=== PATIENT | male | born 1930 | race Caucasian/White ===

== ENCOUNTER 2017-10-31 16:54 | Emergency (ER) | payer MEDICARE, BC ==
[2017-10-31 17:17] VITALS: BP 146/80
[2017-10-31] MEDS ORDERED: Take Home: Ciprofloxacin 500 MG Tab, 2 Tab Pack PO ONE ×2 (18:11→18:18)
--- NOTE | 2017-10-31 22:26 | EDM.PDOC ---
ED HPI GENERAL MEDICAL PROBLEM - General Chief Complaint: Genitourinary Problem Time Seen by Provider: 10/31/17 17:05 Source of Information: Reports: Patient History Limitations: Reports: No Limitations - History of Present Illness INITIAL COMMENTS - FREE TEXT/NARRATIVE: Pt. presents to ER with difficulty voiding urine. He has a suprapubic catheter that has been plugged for several hours. He denies any fever or chills. Pt. attempted to fluid catheter, and subsequently used a wire to attempt clearing the obstruction. Onset: Today Location: Reports: Abdomen Bladder Pain Score (Numeric/FACES): 10 - Related Data Allergies Allergy/AdvReac Type Severity Reaction Status Date / Time cefazolin Allergy Rash Verified 10/31/17 17:24 tramadol Allergy Rash Verified 10/31/17 17:20 tape Allergy Rash Uncoded 10/31/17 17:20 Home Meds: Home Meds Hydrocodone/Acetaminophen [[place] 10-325] 1 tab PO Q6H PRN 10/11/13 [History] Brinzolamide [Azopt 1% Ophth Susp] 1 drop EYEBOTH BID 08/14/16 [History] Donepezil [Aricept] 10 mg PO BEDTIME 08/14/16 [History] Pramipexole [Mirapex] 1 mg PO DAILY 08/14/16 [History] Timolol [Betimol] 1 drop EYEBOTH Q12H 08/14/16 [History] Acetaminophen [Acetaminophen Extra Strength] 1,000 mg PO Q4H PRN 10/31/17 [ History] Cranberry Conc/C/Bacill Coag [Cranberry Tablet] 1 each PO BID 10/31/17 [History] Escitalopram [Lexapro] 20 mg PO DAILY 10/31/17 [History] Gabapentin [Neurontin] 300 mg PO BID 10/31/17 [History] Multivitamin [Multiple Vitamins] 1 each PO DAILY 10/31/17 [History] Oxybutynin Chloride [Ditropan Xl] 15 mg PO DAILY 10/31/17 [History] Travoprost [Travatan Z] 1 drop EYEBOTH BEDTIME 10/31/17 [History] hydrOXYzine Pamoate [Hydroxyzine Pamoate] 25 mg PO QID PRN 10/31/17 [History] Past Medical History Genitourinary History: Reports: Urostomy Musculoskeletal History: Reports: Back Pain, Chronic - Past Surgical History Musculoskeletal Surgical History: Reports: Hip Replacement, Knee Replacement, Shoulder Surgery Social & Family History - Tobacco Use Smoking Status *Q: Never Smoker - Alcohol Use Days Per Week of Alcohol Use: 1 Number of Drinks Per Day: 1 Total Drinks Per Week: 1 - Recreational Drug Use Recreational Drug Use: No ED ROS GENERAL - Review of Systems Review Of Systems: See Below Constitutional: Reports: No Symptoms Respiratory: Reports: No Symptoms Cardiovascular: Reports: No Symptoms GI/Abdominal: Reports: No Symptoms : Reports: Other (see HPI) ED EXAM, GENERAL - Physical Exam Exam: See Below Exam Limited By: No Limitations General Appearance: Alert, WD/WN, No Apparent Distress Respiratory/Chest: No Respiratory Distress, Lungs Clear, Normal Breath Sounds, No Accessory Muscle Use, Chest Non-Tender Cardiovascular: Normal Peripheral Pulses, Regular Rate, Rhythm, No Edema, No Gallop, No JVD, No Murmur, No Rub GI/Abdominal: Normal Bowel Sounds, Soft, Non-Tender, No Organomegaly, No Distention, No Abnormal Bruit, No Mass (Male) Exam: No Hernia, Normal Inspection, Suprapubic Fullness, Urethral Discharge (suprapubic catheter is obstructed with while, curdlike material. Culture was obtained.). No: Scrotal Swelling, Scrotum Tenderness (L), Scrotum Tenderness (R) Rectal (Males) Exam: Deferred Back Exam: Normal Inspection, Full Range of Motion, NT Extremities: Normal Inspection, Normal Range of Motion, Non-Tender, Normal Capillary Refill, No Pedal Edema Neurological: Alert, Oriented, CN II-XII Intact, Normal Cognition, Normal Gait, Normal Reflexes, No Motor/Sensory Deficits Course - Vital Signs Last Recorded V/S: Last Vital Signs Temp 37.2 C 10/31/17 17:13 Pulse 56 L 10/31/17 17:13 Resp 16 10/31/17 17:13 BP 146/80 H 10/31/17 17:13 Pulse Ox 96 10/31/17 17:13 - Orders/Labs/Meds Orders: Active Orders 24 hr Category Date Time Status Insert Urinary Catheter [OM.PC] Q24H Care 10/31/17 18:00 Ordered Urinary Catheter Assessment [RC] ASDIRECTED Care 10/31/17 18:00 Active CULTURE URINE [RM] Stat Lab 10/31/17 17:54 Received Labs: Laboratory Tests 10/31/17 Range/Units 17:07 Urine Color Dark yellow H (YELLOW) Urine Appearance Turbid H (CLEAR) Urine pH 8.5 H (5.0-8.0) Ur Specific [place] 1.020 Urine Protein 100 H (NEGATIVE) mg/dL Urine Glucose (UA) Negative (NEGATIVE) mg/dL Urine Ketones Trace H (NEGATIVE) mg/dL Urine Occult Blood Large H (NEGATIVE) Urine Nitrite Positive H (NEGATIVE) Urine Bilirubin Negative (NEGATIVE) Urine Urobilinogen 0.2 (0.2) EU/dL Ur Leukocyte Esterase Large H (NEGATIVE) Urine RBC 20-30 H (NOT SEEN) /HPF Urine WBC >100 H (NOT SEEN) /HPF Urine WBC Clumps Many Ur Transition Epith Cell Not seen (NEGATIVE) /HPF Amorphous Sediment Moderate Urine Bacteria Many H (NEGATIVE) /HPF Urine Mucus Moderate H (NEGATIVE) /LPF Meds: Medications Discontinued Medications Generic Name Dose Route Start Last Admin Trade Name You PRN Reason Stop Dose Admin Ciprofloxacin 1 packet 10/31/17 18:11 10/31/17 18:24 Take Home: Ciprofloxacin 500 Mg, 2 Tab Pack PO 10/31/17 18:12 1 packet ONETIME ONE Administration Ciprofloxacin 1 packet 10/31/17 18:18 10/31/17 18:24 Take Home: Ciprofloxacin 500 Mg, 2 Tab Pack PO 10/31/17 18:19 1 packet ONETIME ONE Administration Departure - Departure Time of Disposition: 18:30 Disposition: Home, Self-Care 01 Condition: Good Clinical Impression: UTI (urinary tract infection) - Discharge Information Instructions: Urinary Tract Infection, Adult, Ciprofloxacin tablets Referrals: Bryant Rodriguez MD [Primary Care Provider] - Forms: ED Department Discharge Additional Instructions: Stop aricept while you are taking the cipro Cipro 500mg twice daily for 7 days Follow-up in clinic in 10-14 days, sooner if not gradually improving. If the catheter becomes clogged again, do not put anything into the catheter, as it is not sterile and can cause a worsening infection or trauma to the bladder. - My Orders Last 24 Hours: My Active Orders 10/31/17 17:54 CULTURE URINE [RM] Stat 10/31/17 18:00 Insert Urinary Catheter [OM.PC] Q24H Urinary Catheter Assessment [RC] ASDIRECTED - Assessment/Plan Last 24 Hours: My Active Orders 10/31/17 17:54 CULTURE URINE [RM] Stat 10/31/17 18:00 Insert Urinary Catheter [OM.PC] Q24H Urinary Catheter Assessment [RC] ASDIRECTED
== END 2017-10-31 18:30 | disposition home or self-care (01) ==
LOC: VM.ED 16:54
DX: N39.0 Urinary tract infection, site not specified (principal); Z88.8 Allergy status to other drugs, medicaments and biological substances; Z91.09 Other allergy status, other than to drugs and biological substances; Z88.5 Allergy status to narcotic agent
CPT/HCPCS: 81001; 87086; 87088; 87186; 99283; A9270-GY

== ENCOUNTER 2018-12-08 10:53 | Emergency (ER) | payer OTHER, MEDICARE, BC ==
[2018-12-08 11:06] VITALS: BP 111/66
--- NOTE | 2018-12-08 11:28 | EDM.PDOC ---
ED HPI GENERAL MEDICAL PROBLEM - General Chief Complaint: Genitourinary Problem Stated Complaint: BLADDER PAIN Time Seen by Provider: 12/08/18 10:55 Source of Information: Reports: Patient, RN History Limitations: Reports: No Limitations - History of Present Illness INITIAL COMMENTS - FREE TEXT/NARRATIVE: Patient presents to the ED at [facility] for the evaluation of what he believes are "bladder spasm." Patient has had a suprapubic catheter for the past 4 years. Has occasional UTI. He has noticed some redness in his urine lately. He follows with a provider at the [facility] in [place]. His last UTI was a couple months ago. Has not noticed any odor or urinary discharge. He states his pain is around the perineal area. This is a chronic issue. Otherwise, no other concerns. Onset: Unknown/Unsure - Related Data Allergies Allergy/AdvReac Type Severity Reaction Status Date / Time cefazolin Allergy Rash Verified 12/08/18 11:08 tramadol Allergy Rash Verified 12/08/18 11:08 tape Allergy Rash Uncoded 10/31/17 17:20 Home Meds: Home Meds Hydrocodone/Acetaminophen [[place] 10-325] 1 tab PO Q6H PRN 10/11/13 [History] Brinzolamide [Azopt 1% Ophth Susp] 1 drop EYEBOTH BID 08/14/16 [History] Donepezil [Aricept] 10 mg PO BEDTIME 08/14/16 [History] Pramipexole [Mirapex] 1 mg PO DAILY 08/14/16 [History] Timolol [Betimol] 1 drop EYEBOTH Q12H 08/14/16 [History] Acetaminophen [Acetaminophen Extra Strength] 1,000 mg PO Q4H PRN 10/31/17 [ History] Cranberry Conc/C/Bacill Coag [Cranberry Tablet] 1 each PO BID 10/31/17 [History] Escitalopram [Lexapro] 20 mg PO DAILY 10/31/17 [History] Gabapentin [Neurontin] 300 mg PO BID 10/31/17 [History] Multivitamin [Multiple Vitamins] 1 each PO DAILY 10/31/17 [History] Oxybutynin Chloride [Ditropan Xl] 15 mg PO DAILY 10/31/17 [History] Travoprost [Travatan Z] 1 drop EYEBOTH BEDTIME 10/31/17 [History] hydrOXYzine pamoate [Hydroxyzine Pamoate] 25 mg PO QID PRN 10/31/17 [History] Nitrofurantoin Monohyd/M-Cryst [Macrobid 100 mg Capsule] 100 mg PO BID 7 Days # 14 capsule 12/08/18 [Rx] Opium/Belladonna Alkaloids [Belladonna-Opium 16.2-30 Supp] 1 each RC BID PRN # 10 supp.rect 12/08/18 [Rx] Past Medical History Genitourinary History: Reports: Urostomy Musculoskeletal History: Reports: Back Pain, Chronic - Past Surgical History Musculoskeletal Surgical History: Reports: Hip Replacement, Knee Replacement, Shoulder Surgery Social & Family History - Tobacco Use Smoking Status *Q: Unknown Ever Smoked ED ROS GENERAL - Review of Systems Review Of Systems: See Below Constitutional: Denies: Fever, Chills Respiratory: Denies: Shortness of Breath, Cough Cardiovascular: Denies: Chest Pain, Palpitations : Reports: Hematuria, Pain (Perineal) Skin: Reports: No Symptoms Neurological: Reports: No Symptoms ED EXAM, RENAL/ - Physical Exam Exam: See Below Exam Limited By: No Limitations General Appearance: Alert, No Apparent Distress Respiratory/Chest: No Respiratory Distress, Lungs Clear, Normal Breath Sounds Cardiovascular: Normal Peripheral Pulses, Regular Rate, Rhythm (Male) Exam: Deferred Neurological: Alert, Oriented Skin Exam: Warm, Dry, Intact, Normal Color Course - Vital Signs Last Recorded V/S: Last Vital Signs Temp 36.7 C 12/08/18 10:55 Pulse 61 12/08/18 10:55 Resp 18 12/08/18 10:55 BP 111/66 12/08/18 10:55 Pulse Ox 97 12/08/18 10:55 - Orders/Labs/Meds Orders: Active Orders 24 hr Category Date Time Status CULTURE URINE [RM] Stat Lab 12/08/18 11:28 Received Labs: Laboratory Tests 12/08/18 Range/Units 11:28 Urine Color Yellow (YELLOW) Urine Appearance Cloudy H (CLEAR) Urine pH 5.5 (5.0-8.0) Ur Specific [place] 1.020 Urine Protein 100 H (NEGATIVE) mg/dL Urine Glucose (UA) Negative (NEGATIVE) mg/dL Urine Ketones Negative (NEGATIVE) mg/dL Urine Occult Blood Moderate H (NEGATIVE) Urine Nitrite Positive H (NEGATIVE) Urine Bilirubin Negative (NEGATIVE) Urine Urobilinogen 0.2 (0.2) EU/dL Ur Leukocyte Esterase Small H (NEGATIVE) Urine RBC 10-20 H (NOT SEEN) /HPF Urine WBC 10-20 H (NOT SEEN) /HPF Urine Bacteria Few H (NEGATIVE) /HPF Urine Mucus Rare H (NEGATIVE) /LPF Departure - Departure Time of Disposition: 12:15 Disposition: Home, Self-Care 01 Condition: Good Clinical Impression: Painful bladder spasm UTI (urinary tract infection) Qualifiers: Urinary tract infection type: acute cystitis Hematuria presence: with hematuria Qualified Code(s): N30.01 - Acute cystitis with hematuria - Discharge Information *PRESCRIPTION DRUG MONITORING PROGRAM REVIEWED*: Not Applicable *COPY OF PRESCRIPTION DRUG MONITORING REPORT IN PATIENT KRUPA: Not Applicable Prescriptions: Nitrofurantoin Monohyd/M-Cryst [Macrobid 100 mg Capsule] 100 mg PO BID 7 Days # 14 capsule Opium/Belladonna Alkaloids [Belladonna-Opium 16.2-30 Supp] 1 each RC BID PRN # 10 supp.rect PRN Reason: Spasms Instructions: Urinary Tract Infection, Adult Forms: ED Department Discharge Additional Instructions: 1. Stay well hydrated and rest 2. See your doctor for a follow up 3. Need to see a Urologist 4. Take antibiotic for the full coarse even if you are feeling better - Problem List Review Problem List Initiated/Reviewed/Updated: Yes - My Orders Last 24 Hours: My Active Orders 12/08/18 11:28 CULTURE URINE [RM] Stat - Assessment/Plan Last 24 Hours: My Active Orders 12/08/18 11:28 CULTURE URINE [RM] Stat Assessment:: UTI with hematuria Bladder spasms Plan: Lab discussed with patient. Will treat for UTI with Macrobid. Will do one prescription for bladder spasms. Needs to see PCP for Urology referral.
== END 2018-12-08 12:23 | disposition home or self-care (01) ==
LOC: VM.ED 10:53
DX: N30.01 Acute cystitis with hematuria (principal); N32.89 Other specified disorders of bladder; Z79.899 Other long term (current) drug therapy
CPT/HCPCS: 81001; 87086; 87088; 87186; 99283; 99283-GF

== ENCOUNTER → 2019-02-23 | Outpatient (CLI) | payer OTHER, MEDICARE, BC | LOC: VM.SLEEP 11:27 | PROVIDERS: ATTEND Psychiatry & Neurology Neurology | DX: G47.33 Obstructive sleep apnea (adult) (pediatric) (principal); E66.9 Obesity, unspecified; Z68.36 Body mass index [BMI] 36.0-36.9, adult | CPT/HCPCS: Q3014 ==

== ENCOUNTER 2019-10-04 16:28 | Observation (INO) | payer MEDICARE, BC ==
[2019-10-04] MEDS ORDERED: Sodium Chloride 0.9% 10 ML Syringe FLUSH PRN ×2 (16:40→18:48)
--- NOTE | 2019-10-04 16:47 | EDM.PDOC ---
ED HPI GENERAL MEDICAL PROBLEM - General Stated Complaint: ER Time Seen by Provider: 10/04/19 16:35 Source of Information: Reports: Patient, EMS - History of Present Illness INITIAL COMMENTS - FREE TEXT/NARRATIVE: Giovanni is an 89 y/o male who is brought to the ER by EMS after he had a syncopal episode at home. He has not been feeling well and according to his he had a fever of 104 at home. EMS reported a temp of 101.4 enroute. He denies that he has taken anything for the fever. He is currently being treated for an epididymitis, but he is not regularly taking the prescribed abx because it gives him diarrhea. It is unknown what abx he is on. He did report taking a pain med for his neuropathy shortly before the syncopal event. EMS reported that he had some confused answers on the way to the hospital, but overall he can answer questions appropriately. Onset: Today - Related Data Allergies Allergy/AdvReac Type Severity Reaction Status Date / Time cefazolin Allergy Rash Verified 10/04/19 18:05 gabapentin Allergy Other Verified 10/04/19 18:06 lactose Allergy Other Verified 10/04/19 18:06 peanut Allergy Other Verified 10/04/19 18:06 pregabalin [From Lyrica] Allergy Other Verified 10/04/19 18:06 tramadol Allergy Rash Verified 10/04/19 18:05 vancomycin Allergy Rash Verified 10/04/19 18:06 tape Allergy Rash Uncoded 10/31/17 17:20 Home Meds: Home Meds Brinzolamide [Azopt 1% Ophth Susp] 1 drop EYEBOTH BID 08/14/16 [History] Donepezil [Aricept] 10 mg PO BEDTIME 08/14/16 [History] Pramipexole [Mirapex] 1 mg PO DAILY 08/14/16 [History] Timolol [Betimol] 1 drop EYEBOTH Q12H 08/14/16 [History] Acetaminophen [Acetaminophen Extra Strength] 1,000 mg PO Q4H PRN 10/31/17 [ History] Cranberry Conc/C/Bacill Coag [Cranberry Tablet] 1 each PO BID 10/31/17 [History] Escitalopram [Lexapro] 20 mg PO DAILY 10/31/17 [History] Gabapentin [Neurontin] 300 mg PO BID 10/31/17 [History] Multivitamin [Multiple Vitamins] 1 each PO DAILY 10/31/17 [History] Travoprost [Travatan Z] 1 drop EYEBOTH BEDTIME 10/31/17 [History] Amoxicillin/Clavulanate K [Augmentin 500-125 MG] 1 tab PO TID 10/04/19 [History] Clotrimazole/Betamethasone Dip [Lotrisone Cream] 15 gm TP BID 10/04/19 [History] Diclofenac Sodium [Voltaren 1% Gel] 4 gm TOP QID 10/04/19 [History] Hydrocodone/Acetaminophen [Hydrocodon-Acetaminophen 5-325] 1 each PO Q8H PRN 01/15 [History] Hyoscyamine Sulfate [Anaspaz] 0.125 mg PO BID 10/04/19 [History] Timolol [Betimol] 51 drop EYEBOTH BID 10/04/19 [History] buPROPion HCl [Wellbutrin Xl] 150 mg PO DAILY 10/04/19 [History] Past Medical History Genitourinary History: Reports: Urostomy Musculoskeletal History: Reports: Back Pain, Chronic - Past Surgical History Musculoskeletal Surgical History: Reports: Hip Replacement, Knee Replacement, Shoulder Surgery Review of Systems - Review of Systems Review Of Systems: See Below Constitutional: Reports: Fever, Weakness Eyes: Reports: No Symptoms Ears: Reports: No Symptoms Nose: Reports: No Symptoms Mouth/Throat: Reports: No Symptoms Respiratory: Reports: No Symptoms Cardiovascular: Reports: Syncope GI/Abdominal: Reports: No Symptoms Genitourinary: Reports: No Symptoms Musculoskeletal: Reports: No Symptoms Skin: Reports: No Symptoms Neurological: Reports: Confusion (intermittent), Syncope, Weakness Psychiatric: Reports: No Symptoms ED EXAM, GENERAL - Physical Exam Exam: See Below Exam Limited By: No Limitations General Appearance: Alert, WD/WN, No Apparent Distress, Other (Elderly male, NAD.) Ears: Other (Bilateral hearing aids) Nose: Normal Inspection, Normal Mucosa Throat/Mouth: Normal Inspection, Normal Lips, Normal Teeth, Normal Voice Head: Atraumatic, Normocephalic Neck: Supple Respiratory/Chest: No Respiratory Distress, Lungs Clear, Normal Breath Sounds, Chest Non-Tender Cardiovascular: Regular Rate, Rhythm, No Edema, No Murmur GI/Abdominal: Normal Bowel Sounds, Soft (Male) Exam: Other (Suprapubic cath noted, no sx of drainage or redness). No : Testicular Tenderness (L), Testicular Tenderness (R) Back Exam: Normal Inspection Extremities: Normal Inspection, Normal Range of Motion, Normal Capillary Refill Neurological: Alert, Oriented, CN II-XII Intact, Normal Cognition Psychiatric: Normal Affect, Normal Mood Skin Exam: Warm, Dry, Intact, Normal Color, No Rash Lymphatic: No Adenopathy EKG INTERPRETATION EKG Date: 10/04/19 Time: 17:01 Rate (Beats/Min): 69 Milo: Normal P-Wave: Present QRS: Normal ST-T: Normal Comparison: NA - No Prior EKG EKG Interpretation Comments: Sinus Rhythm Course - Vital Signs Text/Narrative:: The patient was seen by the [employer]. Labs, EKG, and CXR were ordered. Saline lock placed. 1809 He was given an NS bolus of 500ml. Labs, CXR, and EKG reviewed with Dr Rachel Walter. Note increasing opacification on lung bases bilaterally, left > right. Vitals stable. Temp max in ER 101. COVID test pending. Will admit patient to observation and keep him in isolation until COVID results returned. Will start him on a course of Ceftriaxone and Azithromycin to cover him for a pneumonia and also the ongoing epididymitis that he has had ongoing. See orders. Last Recorded V/S: Last Vital Signs Temp 38.3 C H 10/04/19 17:40 Pulse 74 10/04/19 17:40 Resp 18 10/04/19 17:40 BP 121/69 10/04/19 17:40 Pulse Ox 95 10/04/19 17:40 - Orders/Labs/Meds Orders: Active Orders 24 hr Category Date Time Status EKG Documentation Completion [RC] STAT Care 10/04/19 16:49 Active CORONAVIRUS COVID-19 PCR PHL [MREF] Stat Lab 10/04/19 16:50 Received CULTURE BLOOD [BC] Stat Lab 10/04/19 16:57 Received Sodium Chloride 0.9% [Normal Saline] 1,000 ml Med 10/04/19 17:38 Active IV ONETIME Sodium Chloride 0.9% [Saline Flush] Med 10/04/19 16:40 Active 10 ml FLUSH ASDIRECTED PRN Blood Culture x2 Reflex Set [OM.PC] Stat Oth 10/04/19 16:40 Ordered Saline Lock Insert [OM.PC] Stat Oth 10/04/19 16:40 Ordered Medication Orders Sodium Chloride (Normal Saline) 1,000 mls @ 500 mls/hr IV ONETIME ONE Stop: 10/04/19 19:37 Last Admin: 10/04/19 17:47 Dose: 500 mls/hr Sodium Chloride (Saline Flush) 10 ml FLUSH ASDIRECTED PRN PRN Reason: Keep Vein Open Labs: Laboratory Tests 10/04/19 10/04/19 10/04/19 Range/Units 16:57 16:57 16:57 WBC 5.9 (4.0-10.0) x10^3/uL RBC 4.73 (4.5-6.0) x10^6/uL Hgb 13.7 L (14.0-18.0) g/dL Hct 41.4 (40.0-52.0) % MCV 87.5 (78.0-93.0) fL MCH 29.0 (26.0-32.0) pg MCHC 33.1 (32.0-36.0) g/dL RDW Coeff of [place] 14.6 (10.0-15.0) % Plt Count 165 (130-400) x10^3/uL Neut % (Auto) 85.7 H (50.0-80.0) % Lymph % (Auto) 5.4 L (25.0-50.0) % [place] % (Auto) 6.0 (2.0-11.0) % Eos % (Auto) 2.6 (0.0-4.0) % Baso % (Auto) 0.3 (0.2-1.2) % PT 12.1 (10.0-12.8) SEC INR 1.1 L (2.0-3.5) APTT 25.0 (24.0-36.0) SEC Sodium 142 (136-145) mmol/L Potassium 3.9 (3.5-5.1) mmol/L Chloride 106 (98-107) mmol/L Carbon Dioxide 29 (21-32) mmol/L Anion Gap 10.9 (10-20) mmol/L BUN 12 (7-18) mg/dL Creatinine 0.9 (0.70-1.30) mg/dL Est Cr Clr Drug Dosing TNP Estimated GFR (MDRD) > 60 Glucose 102 (74-106) mg/dL Lactic Acid (0.4-2.0) mmol/L Calcium 8.1 L (8.5-10.1) mg/dL Corrected Calcium 8.82 (8.5-10.1) mg/dL Total Bilirubin 0.7 (0.2-1.0) mg/dL AST 23 (15-37) U/L ALT 29 (16-63) U/L Alkaline Phosphatase 104 (46-116) U/L Lactate Dehydrogenase 169 (85-227) U/L Troponin I < 0.017 (<=0.056) ng/mL Total Protein 6.9 (6.4-8.2) g/dL Albumin 3.1 L (3.4-5.0) g/dL Globulin 3.8 Albumin/Globulin Ratio 0.82 Urine Color (YELLOW) Urine Appearance (CLEAR) Urine pH (5.0-8.0) Ur Specific [place] Urine Protein (NEGATIVE) mg/dL Urine Glucose (UA) (NEGATIVE) mg/dL Urine Ketones (NEGATIVE) mg/dL Urine Occult Blood (NEGATIVE) Urine Nitrite (NEGATIVE) Urine Bilirubin (NEGATIVE) Urine Urobilinogen (0.2) EU/dL Ur Leukocyte Esterase (NEGATIVE) Urine RBC (NOT SEEN) /HPF Urine WBC (NOT SEEN) /HPF Ur Squamous Epith Cells (NEGATIVE) /HPF Amorphous Sediment Urine Bacteria (NEGATIVE) /HPF Urine Mucus (NEGATIVE) /LPF Ethyl Alcohol < 3 (0-3) mg/dL 10/04/19 10/04/19 Range/Units 16:57 17:50 WBC (4.0-10.0) x10^3/uL RBC (4.5-6.0) x10^6/uL Hgb (14.0-18.0) g/dL Hct (40.0-52.0) % MCV (78.0-93.0) fL MCH (26.0-32.0) pg MCHC (32.0-36.0) g/dL RDW Coeff of [place] (10.0-15.0) % Plt Count (130-400) x10^3/uL Neut % (Auto) (50.0-80.0) % Lymph % (Auto) (25.0-50.0) % [place] % (Auto) (2.0-11.0) % Eos % (Auto) (0.0-4.0) % Baso % (Auto) (0.2-1.2) % PT (10.0-12.8) SEC INR (2.0-3.5) APTT (24.0-36.0) SEC Sodium (136-145) mmol/L Potassium (3.5-5.1) mmol/L Chloride (98-107) mmol/L Carbon Dioxide (21-32) mmol/L Anion Gap (10-20) mmol/L BUN (7-18) mg/dL Creatinine (0.70-1.30) mg/dL Est Cr Clr Drug Dosing Estimated GFR (MDRD) Glucose (74-106) mg/dL Lactic Acid 1.3 (0.4-2.0) mmol/L Calcium (8.5-10.1) mg/dL Corrected Calcium (8.5-10.1) mg/dL Total Bilirubin (0.2-1.0) mg/dL AST (15-37) U/L ALT (16-63) U/L Alkaline Phosphatase (46-116) U/L Lactate Dehydrogenase (85-227) U/L Troponin I (<=0.056) ng/mL Total Protein (6.4-8.2) g/dL Albumin (3.4-5.0) g/dL Globulin Albumin/Globulin Ratio Urine Color Light yellow (YELLOW) Urine Appearance Slightly cloudy H (CLEAR) Urine pH 7.5 (5.0-8.0) Ur Specific [place] 1.015 Urine Protein Negative (NEGATIVE) mg/dL Urine Glucose (UA) Negative (NEGATIVE) mg/dL Urine Ketones Negative (NEGATIVE) mg/dL Urine Occult Blood Small H (NEGATIVE) Urine Nitrite Positive H (NEGATIVE) Urine Bilirubin Negative (NEGATIVE) Urine Urobilinogen 0.2 (0.2) EU/dL Ur Leukocyte Esterase Small H (NEGATIVE) Urine RBC 0-5 (NOT SEEN) /HPF Urine WBC 5-10 H (NOT SEEN) /HPF Ur Squamous Epith Cells Not seen (NEGATIVE) /HPF Amorphous Sediment Moderate Urine Bacteria Moderate H (NEGATIVE) /HPF Urine Mucus Few H (NEGATIVE) /LPF Ethyl Alcohol (0-3) mg/dL Meds: Medications Generic Name Dose Route Start Last Admin Trade Name Freq PRN Reason Stop Dose Admin Sodium Chloride 1,000 mls @ 500 mls/hr 10/04/19 17:38 10/04/19 17:47 Normal Saline IV 10/04/19 19:37 500 mls/hr ONETIME ONE Administration Sodium Chloride 10 ml 10/04/19 16:40 Saline Flush FLUSH ASDIRECTED PRN Keep Vein Open - Radiology Interpretation Free Text/Narrative:: CXR=increasing opacification overlying the lung bases bilaterally, left greater than right. developing infiltrates are note excluded. (See final report) Departure - Departure Time of Disposition: 18:31 Disposition: Refer to Observation Condition: Good Clinical Impression: Fever, Syncope - Discharge Information *PRESCRIPTION DRUG MONITORING PROGRAM REVIEWED*: Not Applicable Sepsis Event Note - Focused Exam Vital Signs: Vital Signs Temp Pulse Resp BP Pulse Ox 10/04/19 17:40 38.3 C H 74 18 121/69 95 10/04/19 16:30 38.3 C H 76 20 133/76 98 Date Exam was Performed: 10/04/19 Time Exam was Performed: 18:25 - Problem List & Annotations (1) Fever SNOMED Code(s): 288829960 Code(s): R50.9 - FEVER, UNSPECIFIED Status: Acute Current Visit: Yes Annotation/Comment:: -R/O COVID vs Pneumonia Qualifiers: Fever type: unspecified Qualified Code(s): R50.9 - Fever, unspecified (2) Syncope SNOMED Code(s): 646199823 Code(s): R55 - SYNCOPE AND COLLAPSE Status: Acute Current Visit: Yes (3) Epididymitis SNOMED Code(s): 89985392 Code(s): N45.1 - EPIDIDYMITIS Status: Acute Current Visit: Yes Annotation/Comment:: -Ongoing -Has been on Augmentin per PCP but not taking regularly -Suprapubic catheter in place - Problem List Review Problem List Initiated/Reviewed/Updated: Yes - My Orders Last 24 Hours: My Active Orders 10/04/19 16:40 Sodium Chloride 0.9% [Saline Flush] 10 ml FLUSH ASDIRECTED PRN Blood Culture x2 Reflex Set [OM.PC] Stat Saline Lock Insert [OM.PC] Stat 10/04/19 16:49 EKG Documentation Completion [RC] STAT 10/04/19 16:50 CORONAVIRUS COVID-19 PCR PHL [MREF] Stat 10/04/19 16:57 CULTURE BLOOD [BC] Stat 10/04/19 17:38 Sodium Chloride 0.9% [Normal Saline] 1,000 ml IV ONETIME - Assessment/Plan Admission H&P: Please use this note as an admission H&P Last 24 Hours: My Active Orders 10/04/19 16:40 Sodium Chloride 0.9% [Saline Flush] 10 ml FLUSH ASDIRECTED PRN Blood Culture x2 Reflex Set [OM.PC] Stat Saline Lock Insert [OM.PC] Stat 10/04/19 16:49 EKG Documentation Completion [RC] STAT 10/04/19 16:50 CORONAVIRUS COVID-19 PCR PHL [MREF] Stat 10/04/19 16:57 CULTURE BLOOD [BC] Stat 10/04/19 17:38 Sodium Chloride 0.9% [Normal Saline] 1,000 ml IV ONETIME Plan: -COVID test pending -Will cover patient with Ceftriaxone and Azithromycin abx -Will repeat CBC, CMP in AM -Isolation/Consider patient PUI -Will monitor vitals closely and if any changes will reassess and consider transfer if needed -Telemetry -Serial Troponin levels due to syncope -Abx as ordered to cover for pneumonia, should also help cover epididymitis
--- NOTE | 2019-10-04 17:21 | CR ---
[id number] RAD/RAD Chest PA or AP 1V EXAM: RAD Chest PA or AP 1V INDICATION: FEVER, SYNCOPAL. COMPARISON: CT chest abdomen pelvis 08/29/2019. DISCUSSION: Cardiomediastinal silhouette is normal in size and contour. Increasing opacification overlying the lung bases bilaterally, left greater than right. No pneumothorax or pleural effusion. IMPRESSION: Increasing opacification overlying the lung bases bilaterally, left greater than right. Developing infiltrates are not excluded. Justice Brower DO 10/04/19 1719 Thank you for allowing us to participate in the care of your patient.
[2019-10-04 17:28] LABS: CHLORIDE,CL 106 mmol/L (98-107); SODIUM,NA 142 mmol/L (136-145)
[2019-10-04] MEDS ORDERED: Sodium Chloride 0.9% 1,000 ML IV ONE (17:38)
[2019-10-04 17:43] LABS: ANION GAP 10.9 mmol/L (10-20)
[2019-10-04] MEDS ORDERED: Ondansetron 4 MG/2 ML SDV IV PRN (18:48)
[2019-10-04] MEDS ORDERED: Acetaminophen/HYDROcodone 325-5 MG Tab PO PRN (19:10)
[2019-10-04] MEDS ORDERED: Azithromycin 500 MG in Sodium Chloride 0.9% 250 ML IV SCH (20:00)
[2019-10-04] MEDS ORDERED: TIMOLOL EYEBOTH SCH (20:00)
[2019-10-04] MEDS: Levofloxacin/Dextrose 5%-Water 500 MG in Premix Bag 1 BAG IV SCH (20:20)
[2019-10-04] MEDS: Diclofenac Sodium 1% Gel 100 GM Tube TOP SCH (20:29)
[2019-10-04] MEDS: Betamethasone Dipropionate/Clotrimazole 0.05-1% Crm 15 GM Tube TOP SCH (20:29)
[2019-10-04] MEDS: Hyoscyamine 0.125 MG/ML Bottle PO SCH (20:31)
[2019-10-04] MEDS: Gabapentin 300 MG Cap PO SCH (20:32)
[2019-10-04] MEDS: Donepezil 10 MG Tab PO SCH (20:32)
[2019-10-04] MEDS ORDERED: Latanoprost 0.005% Ophth Soln 2.5 ML Bottle EYEBOTH SCH (21:15)
[2019-10-04] MEDS: Sodium Chloride 0.65% Nasal Spray 45 ML Bottle NAS PRN (22:24)
[2019-10-04] MEDS: Acetaminophen 500 MG Tab PO PRN (22:26)
[2019-10-04] MEDS: Pramipexole 0.5 MG Tab PO SCH (22:27)
[2019-10-04] MEDS: Timolol Maleate 0.5% Ophth Soln 5 ML Bottle EYEBOTH SCH (22:28)
[2019-10-04] MEDS: Dorzolamide 2% Ophth Soln 10 ML Bottle EYEBOTH SCH (23:38)
[2019-10-05] MEDS ORDERED: Oxymetazoline 0.05% Nasal Spray 30 ML Bottle NAS PRN (00:08)
[2019-10-05] MEDS: buPROPion 150 MG Tab.ER PO SCH (07:48)
[2019-10-05] MEDS: Loperamide 2 MG Cap PO PRN ×2 (07:49→10:46)
[2019-10-05] MEDS: Gabapentin 300 MG Cap PO SCH ×3 (07:49→19:29)
[2019-10-05] MEDS: Citalopram 20 MG Tab PO SCH (07:49)
[2019-10-05] MEDS: Hyoscyamine 0.125 MG/ML Bottle PO SCH ×3 (07:49→19:32)
[2019-10-05] MEDS: Betamethasone Dipropionate/Clotrimazole 0.05-1% Crm 15 GM Tube TOP SCH ×2 (07:49→19:34)
[2019-10-05] MEDS: Diclofenac Sodium 1% Gel 100 GM Tube TOP SCH ×4 (07:50→19:33)
[2019-10-05] MEDS: Timolol Maleate 0.5% Ophth Soln 5 ML Bottle EYEBOTH SCH ×2 (07:50→19:33)
[2019-10-05] MEDS: Dorzolamide 2% Ophth Soln 10 ML Bottle EYEBOTH SCH ×2 (07:51→21:46)
[2019-10-05 08:44] LABS: CHLORIDE,CL 106 mmol/L (98-107); SODIUM,NA 142 mmol/L (136-145)
[2019-10-05 08:46] LABS: ANION GAP 10.8 mmol/L (10-20)
[2019-10-05] MEDS ORDERED: Azithromycin 250 MG Tab PO ONE (09:15)
--- NOTE | 2019-10-05 09:38 | PCM.PN ---
- General Info Date of Service: 10/05/19 Subjective Update: Patient reports feeling better today and wondering when he can go home. No respiratory sx today. Fevers resolved overnight. Reports left testicle is less tender than it was. Functional Status: Reports: Pain Controlled, Tolerating Diet - Review of Systems General: Reports: No Symptoms HEENT: Reports: No Symptoms Pulmonary: Reports: No Symptoms Cardiovascular: Reports: No Symptoms Gastrointestinal: Reports: No Symptoms Genitourinary: Reports: No Symptoms Musculoskeletal: Reports: No Symptoms Skin: Reports: No Symptoms Neurological: Reports: No Symptoms - Patient Data Vitals - Most Recent: Last Vital Signs Temp 36.6 C 10/05/19 06:20 Pulse 56 L 10/05/19 06:20 Resp 20 10/05/19 06:20 BP 98/56 L 10/05/19 06:20 Pulse Ox 93 L 10/05/19 08:00 Weight - Most Recent: 116.12 kg I&O - Last 24 Hours: Intake & Output 10/04/19 10/05/19 10/05/19 22:59 06:59 14:59 Intake Total 400 1250 240 Output Total 1200 500 Balance 400 50 -260 Lab Results Last 24 Hours: Laboratory Results - last 24 hr 10/04/19 10/04/19 10/04/19 Range/Units 16:57 16:57 16:57 WBC 5.9 (4.0-10.0) x10^3/uL RBC 4.73 (4.5-6.0) x10^6/uL Hgb 13.7 L (14.0-18.0) g/dL Hct 41.4 (40.0-52.0) % MCV 87.5 (78.0-93.0) fL MCH 29.0 (26.0-32.0) pg MCHC 33.1 (32.0-36.0) g/dL RDW Coeff of [place] 14.6 (10.0-15.0) % Plt Count 165 (130-400) x10^3/uL Neut % (Auto) 85.7 H (50.0-80.0) % Lymph % (Auto) 5.4 L (25.0-50.0) % Sharkey % (Auto) 6.0 (2.0-11.0) % Eos % (Auto) 2.6 (0.0-4.0) % Baso % (Auto) 0.3 (0.2-1.2) % PT 12.1 (10.0-12.8) SEC INR 1.1 L (2.0-3.5) APTT 25.0 (24.0-36.0) SEC Sodium 142 (136-145) mmol/L Potassium 3.9 (3.5-5.1) mmol/L Chloride 106 (98-107) mmol/L Carbon Dioxide 29 (21-32) mmol/L Anion Gap 10.9 (10-20) mmol/L BUN 12 (7-18) mg/dL Creatinine 0.9 (0.70-1.30) mg/dL Est Cr Clr Drug Dosing TNP Estimated GFR (MDRD) > 60 Glucose 102 (74-106) mg/dL Lactic Acid (0.4-2.0) mmol/L Calcium 8.1 L (8.5-10.1) mg/dL Corrected Calcium 8.82 (8.5-10.1) mg/dL Total Bilirubin 0.7 (0.2-1.0) mg/dL AST 23 (15-37) U/L ALT 29 (16-63) U/L Alkaline Phosphatase 104 (46-116) U/L Lactate Dehydrogenase 169 (85-227) U/L Troponin I < 0.017 (<=0.056) ng/mL Total Protein 6.9 (6.4-8.2) g/dL Albumin 3.1 L (3.4-5.0) g/dL Globulin 3.8 Albumin/Globulin Ratio 0.82 Urine Color (YELLOW) Urine Appearance (CLEAR) Urine pH (5.0-8.0) Ur Specific [place] Urine Protein (NEGATIVE) mg/dL Urine Glucose (UA) (NEGATIVE) mg/dL Urine Ketones (NEGATIVE) mg/dL Urine Occult Blood (NEGATIVE) Urine Nitrite (NEGATIVE) Urine Bilirubin (NEGATIVE) Urine Urobilinogen (0.2) EU/dL Ur Leukocyte Esterase (NEGATIVE) Urine RBC (NOT SEEN) /HPF Urine WBC (NOT SEEN) /HPF Ur Squamous Epith Cells (NEGATIVE) /HPF Amorphous Sediment Urine Bacteria (NEGATIVE) /HPF Urine Mucus (NEGATIVE) /LPF Ethyl Alcohol < 3 (0-3) mg/dL 0410/04/19 10/04/19 Range/Units 16:57 17:50 23:05 WBC (4.0-10.0) x10^3/uL RBC (4.5-6.0) x10^6/uL Hgb (14.0-18.0) g/dL Hct (40.0-52.0) % MCV (78.0-93.0) fL MCH (26.0-32.0) pg MCHC (32.0-36.0) g/dL RDW Coeff of [place] (10.0-15.0) % Plt Count (130-400) x10^3/uL Neut % (Auto) (50.0-80.0) % Lymph % (Auto) (25.0-50.0) % Sharkey % (Auto) (2.0-11.0) % Eos % (Auto) (0.0-4.0) % Baso % (Auto) (0.2-1.2) % PT (10.0-12.8) SEC INR (2.0-3.5) APTT (24.0-36.0) SEC Sodium (136-145) mmol/L Potassium (3.5-5.1) mmol/L Chloride (98-107) mmol/L Carbon Dioxide (21-32) mmol/L Anion Gap (10-20) mmol/L BUN (7-18) mg/dL Creatinine (0.70-1.30) mg/dL Est Cr Clr Drug Dosing Estimated GFR (MDRD) Glucose (74-106) mg/dL Lactic Acid 1.3 (0.4-2.0) mmol/L Calcium (8.5-10.1) mg/dL Corrected Calcium (8.5-10.1) mg/dL Total Bilirubin (0.2-1.0) mg/dL AST (15-37) U/L ALT (16-63) U/L Alkaline Phosphatase (46-116) U/L Lactate Dehydrogenase (85-227) U/L Troponin I < 0.017 (<=0.056) ng/mL Total Protein (6.4-8.2) g/dL Albumin (3.4-5.0) g/dL Globulin Albumin/Globulin Ratio Urine Color Light yellow (YELLOW) Urine Appearance Slightly cloudy H (CLEAR) Urine pH 7.5 (5.0-8.0) Ur Specific [place] 1.015 Urine Protein Negative (NEGATIVE) mg/dL Urine Glucose (UA) Negative (NEGATIVE) mg/dL Urine Ketones Negative (NEGATIVE) mg/dL Urine Occult Blood Small H (NEGATIVE) Urine Nitrite Positive H (NEGATIVE) Urine Bilirubin Negative (NEGATIVE) Urine Urobilinogen 0.2 (0.2) EU/dL Ur Leukocyte Esterase Small H (NEGATIVE) Urine RBC 0-5 (NOT SEEN) /HPF Urine WBC 5-10 H (NOT SEEN) /HPF Ur Squamous Epith Cells Not seen (NEGATIVE) /HPF Amorphous Sediment Moderate Urine Bacteria Moderate H (NEGATIVE) /HPF Urine Mucus Few H (NEGATIVE) /LPF Ethyl Alcohol (0-3) mg/dL 10/05/19 10/05/19 Range/Units 08:09 08:09 WBC 3.9 L (4.0-10.0) x10^3/uL RBC 4.56 (4.5-6.0) x10^6/uL Hgb 13.4 L (14.0-18.0) g/dL Hct 40.2 (40.0-52.0) % MCV 88.2 (78.0-93.0) fL MCH 29.4 (26.0-32.0) pg MCHC 33.3 (32.0-36.0) g/dL RDW Coeff of [place] 14.8 (10.0-15.0) % Plt Count 168 (130-400) x10^3/uL Neut % (Auto) 60.7 (50.0-80.0) % Lymph % (Auto) 18.3 L (25.0-50.0) % Sharkey % (Auto) 12.4 H (2.0-11.0) % Eos % (Auto) 8.3 H (0.0-4.0) % Baso % (Auto) 0.3 (0.2-1.2) % PT (10.0-12.8) SEC INR (2.0-3.5) APTT (24.0-36.0) SEC Sodium 142 (136-145) mmol/L Potassium 3.8 (3.5-5.1) mmol/L Chloride 106 (98-107) mmol/L Carbon Dioxide 29 (21-32) mmol/L Anion Gap 10.8 (10-20) mmol/L BUN 11 (7-18) mg/dL Creatinine 0.9 (0.70-1.30) mg/dL Est Cr Clr Drug Dosing 63.47 Estimated GFR (MDRD) > 60 Glucose 114 H (74-106) mg/dL Lactic Acid (0.4-2.0) mmol/L Calcium 8.1 L (8.5-10.1) mg/dL Corrected Calcium 9.06 (8.5-10.1) mg/dL Total Bilirubin 1.1 H (0.2-1.0) mg/dL AST 22 (15-37) U/L ALT 27 (16-63) U/L Alkaline Phosphatase 95 (46-116) U/L Lactate Dehydrogenase (85-227) U/L Troponin I < 0.017 (<=0.056) ng/mL Total Protein 6.5 (6.4-8.2) g/dL Albumin 2.8 L (3.4-5.0) g/dL Globulin 3.7 Albumin/Globulin Ratio 0.76 Urine Color (YELLOW) Urine Appearance (CLEAR) Urine pH (5.0-8.0) Ur Specific [place] Urine Protein (NEGATIVE) mg/dL Urine Glucose (UA) (NEGATIVE) mg/dL Urine Ketones (NEGATIVE) mg/dL Urine Occult Blood (NEGATIVE) Urine Nitrite (NEGATIVE) Urine Bilirubin (NEGATIVE) Urine Urobilinogen (0.2) EU/dL Ur Leukocyte Esterase (NEGATIVE) Urine RBC (NOT SEEN) /HPF Urine WBC (NOT SEEN) /HPF Ur Squamous Epith Cells (NEGATIVE) /HPF Amorphous Sediment Urine Bacteria (NEGATIVE) /HPF Urine Mucus (NEGATIVE) /LPF Ethyl Alcohol (0-3) mg/dL Alireza Results Last 24 Hours: Microbiology 10/04/19 16:50 Influenza Type A Antigen Screen - Final Nasopharyngeal Swab NEGATIVE INFLUENZA A VIRUS AG REFERENCE RANGE: NEGATIVE Influenza Type B Antigen Screen - Final NEGATIVE INFLUENZA B VIRUS AG REFERENCE RANGE: NEGATIVE Med Orders - Current: Current Medications Acetaminophen (Tylenol Extra Strength) 1,000 mg PO Q4H PRN PRN Reason: Pain Last Admin: 10/04/19 22:26 Dose: 1,000 mg Hydrocodone Bitart/Acetaminophen ([place] 325-5 Mg) 1 tab PO Q8H PRN PRN Reason: Pain Betamethasone/Clotrimazole (Lotrisone) 15 gm TOP BID [facility] Last Admin: 10/05/19 07:49 Dose: 1 applic Bupropion HCl (Wellbutrin Xl) 150 mg PO DAILY [facility] Last Admin: 10/05/19 07:48 Dose: 150 mg Citalopram Hydrobromide (Celexa) 40 mg PO DAILY [facility] Last Admin: 10/05/19 07:49 Dose: 40 mg Diclofenac Sodium (Voltaren 1% Gel) 4 gm TOP QID [facility] Last Admin: 10/05/19 07:50 Dose: 1 applic Donepezil HCl (Aricept) 10 mg PO BEDTIME [facility] Last Admin: 10/04/19 20:32 Dose: 10 mg Dorzolamide HCl (Trusopt 2% Ophth Soln) 0 ml EYEBOTH BID [facility] Last Admin: 10/05/19 07:51 Dose: Not Given Gabapentin (Neurontin) 600 mg PO TID [facility] Last Admin: 10/05/19 07:49 Dose: 600 mg Hyoscyamine (Hyosyne) 0.125 mg PO BID [facility] Last Admin: 10/05/19 07:55 Dose: 0.125 mg Levofloxacin/Dextrose 500 mg/ (Premix) 100 mls @ 100 mls/hr IV Q24H [facility] Last Admin: 10/04/19 20:20 Dose: 100 mls/hr Latanoprost (Xalatan 0.005% Ophth Soln) 0 ml EYEBOTH BEDTIME [facility] Last Admin: 10/04/19 22:23 Dose: 1 drop Loperamide HCl (Imodium) 2 mg PO Q4H PRN PRN Reason: Diarrhea Last Admin: 10/05/19 07:49 Dose: 2 mg Ondansetron HCl (Zofran) 4 mg IV Q4H PRN PRN Reason: Nausea/Vomiting Oxymetazoline HCl (Nasal Decongestant [place]) 0 ml JUDY BID PRN PRN Reason: Congestion Pramipexole Dihydrochloride (Mirapex) 1 mg PO BEDTIME [facility] Last Admin: 10/04/19 22:27 Dose: 1 mg Sodium Chloride (Saline Flush) 10 ml FLUSH ASDIRECTED PRN PRN Reason: Keep Vein Open Sodium Chloride ([place] Nasal [place]) 0 ml JUDY Q2H PRN PRN Reason: Congestion Last Admin: 10/04/19 22:24 Dose: 2 spray Timolol Maleate (Timoptic 0.5% Ophth Soln) 0 ml EYEBOTH BID [facility] Last Admin: 10/05/19 07:50 Dose: 1 drop Discontinued Medications Azithromycin (Zithromax) 500 mg PO ONETIME ONE Stop: 10/05/19 09:16 Sodium Chloride (Normal Saline) 1,000 mls @ 500 mls/hr IV ONETIME ONE Stop: 10/04/19 19:37 Last Admin: 10/04/19 17:47 Dose: 500 mls/hr Azithromycin 500 mg/ Sodium (Chloride) 250 mls @ 250 mls/hr IV DAILY@1999 [facility] Last Admin: 10/04/19 21:33 Dose: 250 mls/hr Non-Formulary Medication (Timolol [Betimol]) 51 drop EYEBOTH BID [facility] Last Admin: 10/04/19 22:34 Dose: Not Given - Exam Quality Assessment: Urine Catheter (Chronic S/P cath in) General: Alert, Oriented, No Acute Distress, Other (Looks better) HEENT: Pupils Equal, Mucous Membr. Moist/[place], Other (Eyes less reddened and less wateru today) Neck: Supple Lungs: Clear to Auscultation, Normal Respiratory Effort Cardiovascular: Regular Rate, Regular Rhythm GI/Abdominal Exam: Soft, Non-Tender (Male) Exam: Testicular Tenderness (L) (decreased ) Back Exam: Normal Inspection Extremities: Non-Tender, Normal Capillary Refill, Pedal Edema (trace) Skin: Warm, Dry, Intact Neurological: No New Focal Deficit Psy/Mental Status: Alert, Normal Affect, Normal Mood Sepsis Event Note - Evaluation Sepsis Screening Result: No Definite Risk - Focused Exam Vital Signs: Vital Signs Temp Temp Pulse Resp BP Pulse Ox Pulse Ox 10/05/19 08:00 93 L 10/05/19 06:20 36.6 C 56 L 20 98/56 L 95 10/05/19 02:17 37.1 C 54 L 18 100/61 95 10/05/19 01:49 96 10/04/19 23:55 94 L 10/04/19 23:33 94 L 10/04/19 22:26 37.7 C 10/04/19 22:02 37.7 C 71 21 H 124/71 96 Date Exam was Performed: 10/05/19 Time Exam was Performed: 09:32 - Problem List & Annotations (1) Fever SNOMED Code(s): 910358871 Code(s): R50.9 - FEVER, UNSPECIFIED Status: Acute Current Visit: Yes Qualifiers: Fever type: unspecified Qualified Code(s): R50.9 - Fever, unspecified Annotation/Comment:: -R/O COVID vs Pneumonia -WBC/lymphocytes decreasing today -COVID test pending -Continue the Levifloxacin -Continue Isolation (2) Syncope SNOMED Code(s): 417684333 Code(s): R55 - SYNCOPE AND COLLAPSE Status: Acute Current Visit: Yes Annotation/Comment:: -Serial Tropnins negative, r/o cardiac etiology (3) Epididymitis SNOMED Code(s): 90091836 Code(s): N45.1 - EPIDIDYMITIS Status: Acute Current Visit: Yes Annotation/Comment:: -Discussed abx therapy with Pharmacy who recommends one more additional dose of Azithromycin 500mg po and then d/c and this should cover for the epididymitis (4) UTI (urinary tract infection) SNOMED Code(s): 81270142 Code(s): N39.0 - URINARY TRACT INFECTION, SITE NOT SPECIFIED Status: Acute Current Visit: Yes (5) Suprapubic catheter SNOMED Code(s): 370542439, 442951655 Code(s): Z93.59 - OTHER CYSTOSTOMY STATUS Status: Acute Current Visit: Yes Annotation/Comment:: -UA was +nitrates as expected with S/P cath in place -Levofloxacin should cover for infection -Good output - Problem List Review Problem List Initiated/Reviewed/Updated: Yes - My Orders Last 24 Hours: My Active Orders 10/04/19 16:40 Blood Culture x2 Reflex Set [OM.PC] Stat Saline Lock Insert [OM.PC] Stat 10/04/19 16:50 CORONAVIRUS COVID-19 PCR PHL [MREF] Stat 10/04/19 16:57 CULTURE BLOOD [BC] Stat 10/04/19 18:33 Patient Status [ADT] Routine 10/04/19 18:48 Cardiac Monitoring [RC] 06,10,14,18,22,02 Intake and Output [RC] QSHIFT Oxygen Therapy [RC] 08,20 Up to Chair [RC] 08,20 Urinary Catheter Assessment [RC] , Vital Signs [RC] 06,10,14,18,22,02 Ondansetron [Zofran] 4 mg IV Q4H PRN Sodium Chloride 0.9% [Saline Flush] 10 ml FLUSH ASDIRECTED PRN Peripheral IV Insertion Adult [OM.PC] Routine Resuscitation Status Routine 10/04/19 18:49 Notify Provider Vital Signs [RC] .PRN Pulse Oximetry [RC] 06,10,14,18,22,02 10/04/19 19:02 Dietary Supplements [RC] 1030,1730 10/04/19 19:08 Dietary Supplements [RC] BIDMEALS 10/04/19 19:10 Acetaminophen [Tylenol Extra Strength] 1,000 mg PO Q4H PRN Acetaminophen/HYDROcodone [[place] 325-5 MG] 1 tab PO Q8H PRN 10/04/19 19:13 May Take Own Home Medications [OM.PC] Routine Precautions [COMM] Routine 10/04/19 19:16 Obtain Home Medication List [OM.PC] Routine 10/04/19 20:00 Betamethasone/Clotrimazole [Lotrisone] 15 gm TOP BID Diclofenac Sodium [Voltaren 1% Gel] 4 gm TOP QID Donepezil [Aricept] 10 mg PO BEDTIME Gabapentin [Neurontin] 600 mg PO TID Hyoscyamine [Hyosyne] 0.125 mg PO BID 10/04/19 21:00 Levofloxacin/Dextrose 5%-Water [Levaquin in D5W 500 MG/100 ML] 500 mg Premix Bag 1 bag IV Q24H 10/04/19 21:15 Dorzolamide [Trusopt 2% Ophth Soln] 0 ml EYEBOTH BID Latanoprost [Xalatan 0.005% Ophth Soln] 0 ml EYEBOTH BEDTIME Pramipexole [Mirapex] 1 mg PO BEDTIME 10/04/19 21:30 timoloL maleate [Timoptic 0.5% Ophth Soln] 0 ml EYEBOTH BID 10/04/19 21:43 Sodium Chloride 0.65% [[place] Nasal [place]] See Dose Instructions JUDY Q2H PRN 10/04/19 Dinner Regular Diet [DIET] 10/05/19 00:08 Oxymetazoline [Nasal Decongestant [place]] See Dose Instructions JUDY BID PRN 10/05/19 07:24 Loperamide [Imodium] 2 mg PO Q4H PRN 10/05/19 08:00 Citalopram [Celexa] 40 mg PO DAILY buPROPion [Wellbutrin XL] 150 mg PO DAILY - Plan Plan:: Continue cares as noted above
[2019-10-05] MEDS ORDERED: Latanoprost 0.005% Ophth Soln 2.5 ML Bottle EYEBOTH SCH (14:54)
[2019-10-05] MEDS: Pramipexole 0.5 MG Tab PO SCH (19:28)
[2019-10-05] MEDS: Acetaminophen 500 MG Tab PO PRN (19:29)
[2019-10-05] MEDS: Donepezil 10 MG Tab PO SCH (19:29)
[2019-10-05] MEDS: Sodium Chloride 0.65% Nasal Spray 45 ML Bottle NAS PRN (19:34)
[2019-10-05] MEDS: Levofloxacin/Dextrose 5%-Water 500 MG in Premix Bag 1 BAG IV SCH (20:01)
[2019-10-05] MEDS ORDERED: guaiFENesin 600 MG Tab.ER PO PRN (21:30)
[2019-10-06 07:01] LABS: CHLORIDE,CL 106 mmol/L (98-107); SODIUM,NA 141 mmol/L (136-145)
[2019-10-06 07:02] LABS: ANION GAP 11.9 mmol/L (10-20)
[2019-10-06] MEDS: Gabapentin 300 MG Cap PO SCH ×2 (07:36→12:29)
[2019-10-06] MEDS: Diclofenac Sodium 1% Gel 100 GM Tube TOP SCH ×2 (07:36→12:36)
[2019-10-06] MEDS: Hyoscyamine 0.125 MG/ML Bottle PO SCH (07:36)
[2019-10-06] MEDS: Citalopram 20 MG Tab PO SCH (07:36)
[2019-10-06] MEDS: buPROPion 150 MG Tab.ER PO SCH (07:36)
[2019-10-06] MEDS: Betamethasone Dipropionate/Clotrimazole 0.05-1% Crm 15 GM Tube TOP SCH (07:37)
[2019-10-06] MEDS: Timolol Maleate 0.5% Ophth Soln 5 ML Bottle EYEBOTH SCH (07:37)
[2019-10-06] MEDS: Dorzolamide 2% Ophth Soln 10 ML Bottle EYEBOTH SCH (07:38)
--- NOTE | 2019-10-06 08:46 | CR ---
[id number] RAD/RAD Chest PA or AP 1V EXAM: FRONTAL CHEST INDICATION: FOLLOW-UP POSSIBLE PNEUMONIA. COMPARISON: October 04, 2019. DISCUSSION: Mild peripheral and basal predominant reticulation suspicious for underlying interstitial lung disease. Possible mild superimposed left base infiltrates are stable. Low lung volumes. Normal heart size. Bilateral shoulder arthroplasties. IMPRESSION: 1. Stable possible mild left base infiltrates. 2. Findings suggesting possible underlying interstitial lung disease. Pranav Troncoso MD 10/06/19 0845 Thank you for allowing us to participate in the care of your patient.
[2019-10-06 13:56] VITALS: BP 134/88; PULSE 52
--- NOTE | 2019-10-06 14:03 | PCM.DCSUM1 ---
Discharge Summary - Hospital Course Brief History: This patient was admitted into the hospital under observation through the emergency department after he was brought to the emergency department on 10-04-19 from home with a syncopal episode BY Ana VANG. I assumed care of the patient the next morning at change of shift. He had not been feeling well over the past couple of days with a fever of 104 at home. He has been self quarantining. He has had no cough or shortness of breath or chest pain. He is currently being treated for epididymitis with Augmentin on the second course. His compliance with the antibiotic therapy has been poor according to the patient and his . He did have a chest x-ray in the emergency department that was concerns for pneumonia with an increasing opacification overlying the lung bases bilaterally greater on the right than the left. Placed on azithromycin ceftriaxone COVID-19 testing pending. He does have an suprapubic catheter that was nitrite positive with WBC although was not cultured. Had a normal WBC at 5.9. Troponin negative no lactic acid was completed. Diagnosis: Stroke: No - Discharge Data Discharge Date: 10/06/19 Discharge Disposition: Home, Self-Care 01 Condition: Good - Referral to Home Health Primary Care Physician: Gaviota Boles NP - Patient Summary/Data Consults: Consultations 10/06/19 08:07 OT Evaluation and Treatment [CONS] Routine PT Evaluation and Treatment [CONS] Routine Hospital Course: Patient was admitted into the hospital under observational status for concerns of fever syncope and epididymitis. He was on Rocephin and azithromycin for questionable pneumonia on his chest x-ray. His symptoms have improved quite a bit although he never really had any complaints of cough congestion wheezing or difficulty breathing. He is Covid Screen was negative and was then taken off of isolation precautions. His epidydimitis that he had prior to admission has improved. Had no documented fever or chills. Is oxygen saturation has been appropriate. Has been noted on his conveyor monitor that is been bradycardic multiple times primarily during the night not so much during the day. He has had no syncopal episode. He has had no documented fever. We will discharge home today with the above plan and recommendations. The patient also did complain of some difficulty with ambulation and getting around his house. He was seen by PT/OT and was told to use a walker not a 1 point cane. Fever-Most likely from either pneumonia or a UTI. There was no culture done on his indwelling suprapubic catheter upon admission. Doxycycline will be good for his possible pneumonia and also the epididymitis although not great for the urine. We will have him get a urine after the course of anti-biotics in the clinic for a culture to assess for continued infection. Doxycycline 100mg po bid for 10 days RX to [facility]. Syncope-Most likely from the bradycardia identified in the hospital. Set up for a HOlter monitor through the clinic tomorrow after discharge. Walker at home by recommendations from PT/OT Epididymitis-Doxycycline 100mg po bid for 10 days. His PSA is negative today so unlikely from prostatitis. Bradycardia-Holter monitor to be placed in the clinic tomorrow follow up by PCP. - Patient Instructions Other/Special Instructions: Continue previous therapies. Start Doxycycline 1 tablet twice daily for the next 10 days. RX to [email or web address]. Holter monitor to be placed tomorrow in the clinic at [facility] at 8:30. Follow up with PCP in the next 5 days for recheck. - Discharge Plan *PRESCRIPTION DRUG MONITORING PROGRAM REVIEWED*: Not Applicable *COPY OF PRESCRIPTION DRUG MONITORING REPORT IN PATIENT KRUPA: Not Applicable Prescriptions/Med Rec: Doxycycline [Vibramycin] 100 mg PO BID 10 Days #20 cap Home Medications: Home Meds Brinzolamide [Azopt 1% Ophth Susp] 1 drop EYEBOTH BID 08/14/16 [History] Donepezil [Aricept] 10 mg PO BEDTIME 08/14/16 [History] Pramipexole [Mirapex] 1 mg PO DAILY 08/14/16 [History] Timolol [Betimol] 1 drop EYEBOTH Q12H 08/14/16 [History] Acetaminophen [Acetaminophen Extra Strength] 1,000 mg PO Q4H PRN 10/31/17 [ History] Cranberry Conc/C/Bacill Coag [Cranberry Tablet] 1 each PO BID 10/31/17 [History] Escitalopram [Lexapro] 20 mg PO DAILY 10/31/17 [History] Gabapentin [Neurontin] 600 mg PO TID 10/31/17 [History] Multivitamin [Multiple Vitamins] 1 each PO DAILY 10/31/17 [History] Travoprost [Travatan Z] 1 drop EYEBOTH BEDTIME 10/31/17 [History] Amoxicillin/Clavulanate K [Augmentin 500-125 MG] 1 tab PO TID 10/04/19 [History] Clotrimazole/Betamethasone Dip [Lotrisone Cream] 15 gm TP BID 10/04/19 [History] Diclofenac Sodium [Voltaren 1% Gel] 4 gm TOP QID 10/04/19 [History] Hydrocodone/Acetaminophen [Hydrocodon-Acetaminophen 5-325] 1 each PO Q8H PRN 01/15 [History] Hyoscyamine Sulfate [Anaspaz] 0.125 mg PO BID 10/04/19 [History] Timolol [Betimol] 1 drop EYEBOTH BID 10/04/19 [History] buPROPion HCl [Wellbutrin Xl] 150 mg PO DAILY 10/04/19 [History] Doxycycline [Vibramycin] 100 mg PO BID 10 Days #20 cap 10/06/19 [Rx] Patient Handouts: Bradycardia, Adult, Epididymitis, Community-Acquired Pneumonia, Adult, [id number] Forms: ED Department Discharge Referrals: Gaviota Boles, [employer] [Primary Care Provider] - - Discharge Summary/Plan Comment DC Time >30 min.: Yes - General Info Date of Service: 10/06/19 Admission Dx/Problem (Free Text: Fever syncope epididymits Subjective Update: The patient slept well throughout the night. He is wondering when he can go home. He has no subjective fever or chills. No cough no shortness of breath or difficulty breathing. No weakness dizziness lightheadedness. No palpitations. He has had no chest pain. He has had no wheezing stridor or difficulty breathing. No abdominal pain nausea or vomiting. He has had a very good appetite. The pain in his left testicle is much improved. Been ambulatory without any complaints of weakness syncope or lightheadedness. He is wondering when he can go home. - Patient Data Vitals - Most Recent: Last Vital Signs Temp 36.5 C 10/06/19 13:54 Pulse 52 L 10/06/19 13:54 Resp 16 10/06/19 13:54 BP 134/88 10/06/19 13:54 Pulse Ox 97 10/06/19 13:54 Weight - Most Recent: 116.12 kg I&O - Last 24 hours: Intake & Output 10/05/19 10/06/19 10/06/19 22:59 06:59 14:59 Intake Total 540 800 360 Output Total 600 700 Balance -60 100 360 Lab Results - Last 24 hrs: Laboratory Results - last 24 hr 10/06/19 10/06/19 Range/Units 06:28 06:28 WBC 4.6 (4.0-10.0) x10^3/uL RBC 4.44 L (4.5-6.0) x10^6/uL Hgb 13.0 L (14.0-18.0) g/dL Hct 39.0 L (40.0-52.0) % MCV 87.8 (78.0-93.0) fL MCH 29.3 (26.0-32.0) pg MCHC 33.3 (32.0-36.0) g/dL RDW Coeff of [place] 14.6 (10.0-15.0) % Plt Count 174 (130-400) x10^3/uL Neut % (Auto) 49.5 L (50.0-80.0) % Lymph % (Auto) 26.2 (25.0-50.0) % [place] % (Auto) 15.3 H (2.0-11.0) % Eos % (Auto) 8.3 H (0.0-4.0) % Baso % (Auto) 0.7 (0.2-1.2) % Sodium 141 (136-145) mmol/L Potassium 3.9 (3.5-5.1) mmol/L Chloride 106 (98-107) mmol/L Carbon Dioxide 27 (21-32) mmol/L Anion Gap 11.9 (10-20) mmol/L BUN 11 (7-18) mg/dL Creatinine 1.0 (0.70-1.30) mg/dL Est Cr Clr Drug Dosing 57.12 mL/min Estimated GFR (MDRD) > 60 Glucose 95 (74-106) mg/dL Calcium 8.1 L (8.5-10.1) mg/dL Corrected Calcium 9.14 (8.5-10.1) mg/dL Total Bilirubin 0.6 (0.2-1.0) mg/dL AST 20 (15-37) U/L ALT 24 (16-63) U/L Alkaline Phosphatase 86 (46-116) U/L Total Protein 6.4 (6.4-8.2) g/dL Albumin 2.7 L (3.4-5.0) g/dL Globulin 3.7 Albumin/Globulin Ratio 0.73 MARISOL Results - Last 24 hrs: Microbiology 10/04/19 16:50 Coronavirus RNA (PCR) - Final Nasopharyngeal Swab 10/04/19 16:57 Aerobic Blood Culture - Preliminary Blood - Venous NO GROWTH AFTER 1 DAY Anaerobic Blood Culture - Preliminary NO GROWTH AFTER 1 DAY Med Orders - Current: Current Medications Acetaminophen (Tylenol Extra Strength) 1,000 mg PO Q4H PRN PRN Reason: Pain Last Admin: 10/05/19 19:29 Dose: 1,000 mg Hydrocodone Bitart/Acetaminophen (Jackson 325-5 Mg) 1 tab PO Q8H PRN PRN Reason: Pain Betamethasone/Clotrimazole (Lotrisone) 0 gm TOP BID [facility] Last Admin: 10/06/19 07:37 Dose: 1 applic Bupropion HCl (Wellbutrin Xl) 150 mg PO DAILY [facility] Last Admin: 10/06/19 07:36 Dose: 150 mg Citalopram Hydrobromide (Celexa) 40 mg PO DAILY [facility] Last Admin: 10/06/19 07:36 Dose: 40 mg Diclofenac Sodium (Voltaren 1% Gel) 4 gm TOP QID [facility] Last Admin: 10/06/19 12:36 Dose: Not Given Donepezil HCl (Aricept) 10 mg PO BEDTIME [facility] Last Admin: 10/05/19 19:29 Dose: 10 mg Dorzolamide HCl (Trusopt 2% Ophth Soln) 0 ml EYEBOTH BID [facility] Last Admin: 10/06/19 07:38 Dose: Not Given Gabapentin (Neurontin) 600 mg PO TID [facility] Last Admin: 10/06/19 12:29 Dose: Not Given Guaifenesin (Mucinex) 600 mg PO BID PRN PRN Reason: nasal congestion Last Admin: 10/05/19 21:45 Dose: 600 mg Hyoscyamine (Hyosyne) 0.125 mg PO BID [facility] Last Admin: 10/06/19 07:36 Dose: Not Given Levofloxacin/Dextrose 500 mg/ (Premix) 100 mls @ 100 mls/hr IV Q24H [facility] Last Admin: 10/05/19 20:01 Dose: 100 mls/hr Latanoprost (Xalatan 0.005% Ophth Soln) 0 ml EYEBOTH BEDTIME [facility] Last Admin: 10/05/19 19:28 Dose: 1 drop Loperamide HCl (Imodium) 2 mg PO Q4H PRN PRN Reason: Diarrhea Last Admin: 10/05/19 10:46 Dose: 2 mg Ondansetron HCl (Zofran) 4 mg IV Q4H PRN PRN Reason: Nausea/Vomiting Oxymetazoline HCl (Nasal Decongestant [place]) 0 ml JUDY BID PRN PRN Reason: Congestion Pramipexole Dihydrochloride (Mirapex) 1 mg PO BEDTIME [facility] Last Admin: 10/05/19 19:28 Dose: 1 mg Sodium Chloride (Saline Flush) 10 ml FLUSH ASDIRECTED PRN PRN Reason: Keep Vein Open Last Admin: 10/05/19 20:01 Dose: 10 ml Sodium Chloride (Barber Nasal [place]) 0 ml JUDY Q2H PRN PRN Reason: Congestion Last Admin: 10/05/19 19:34 Dose: 2 spray Timolol Maleate (Timoptic 0.5% Ophth Soln) 0 ml EYEBOTH BID [facility] Last Admin: 10/06/19 07:37 Dose: 1 drop Discontinued Medications Azithromycin (Zithromax) 500 mg PO ONETIME ONE Stop: 10/05/19 09:16 Last Admin: 10/05/19 10:46 Dose: 500 mg Betamethasone/Clotrimazole (Lotrisone) 15 gm TOP BID [facility] Last Admin: 10/05/19 07:49 Dose: 1 applic Diclofenac Sodium (Voltaren 1% Gel) 4 gm TOP QID [facility] Last Admin: 10/05/19 12:07 Dose: Not Given Dorzolamide HCl (Trusopt 2% Ophth Soln) 0 ml EYEBOTH BID [facility] Last Admin: 10/05/19 07:51 Dose: Not Given Hyoscyamine (Hyosyne) 0.125 mg PO BID [facility] Last Admin: 10/05/19 07:55 Dose: 0.125 mg Sodium Chloride (Normal Saline) 1,000 mls @ 500 mls/hr IV ONETIME ONE Stop: 10/04/19 19:37 Last Admin: 10/04/19 17:47 Dose: 500 mls/hr Azithromycin 500 mg/ Sodium (Chloride) 250 mls @ 250 mls/hr IV DAILY@1999 [facility] Last Admin: 10/04/19 21:33 Dose: 250 mls/hr Latanoprost (Xalatan 0.005% Ophth Soln) 0 ml EYEBOTH BEDTIME [facility] Last Admin: 10/04/19 22:23 Dose: 1 drop Non-Formulary Medication (Timolol [Betimol]) 51 drop EYEBOTH BID [facility] Last Admin: 10/04/19 22:34 Dose: Not Given Timolol Maleate (Timoptic 0.5% Ophth Soln) 0 ml EYEBOTH BID [facility] Last Admin: 10/05/19 07:50 Dose: 1 drop Comments:: As of note he was on the conveyor monitor throughout the night and multiple times he was noted to have a heart rate in the 30s to 40s while he was sleeping. There was no evidence or documentation of this bradycardia during the day. - Exam General: Reports: Alert, Oriented HEENT: Reports: Pupils Equal, Pupils Reactive Neck: Reports: Supple Lungs: Reports: Clear to Auscultation, Normal Respiratory Effort Cardiovascular: Reports: Regular Rate, Regular Rhythm GI/Abdominal Exam: Normal Bowel Sounds, Soft, Non-Tender (Male) Exam: No Hernia, Testicular Tenderness (L) (mild). No: Inguinal Lymphadenopathy, Suprapubic Fullness, Testicular Mass, Testicular Tenderness (R) Rectal (Males) Exam: Deferred Back Exam: Reports: Normal Inspection Extremities: Normal Inspection, Normal Range of Motion, No Pedal Edema Skin: Reports: Warm, Dry, Intact Neurological: Reports: No New Focal Deficit Psy/Mental Status: Reports: Alert, Normal Affect, Normal Mood
== END 2019-10-06 14:30 | disposition home or self-care (01) ==
LOC: VM.ED 16:28 → VM.MS 18:33
PROVIDERS: ADMIT Nurse Practitioner Family; ATTEND Nurse Practitioner Family
DX: R50.9 Fever, unspecified (principal); R55 Syncope and collapse; N45.1 Epididymitis; N39.0 Urinary tract infection, site not specified; R00.1 Bradycardia, unspecified; Z88.1 Allergy status to other antibiotic agents; Z91.010 Allergy to peanuts; Z88.6 Allergy status to analgesic agent; Z88.8 Allergy status to other drugs, medicaments and biological substances; Z91.048 Other nonmedicinal substance allergy status; Z79.899 Other long term (current) drug therapy; Z93.59 Other cystostomy status; Z91.14 Patient's other noncompliance with medication regimen
CPT/HCPCS: 36415; 71045; 80053; 80307; 81001; 83605; 83615; 84153; 84484; 85025; 85610; 85730; 87040; 87804; 87804-59; 93005; 93010; 94760; 96360; 96361; 96365; 96366; 96367; 97161-GP; 97165-GO; 99217; 99220; 99225; 99284-GF; 99285-25; A9270-GY; G0378; J0456; J1956; J7030; J7050; U0002

== ENCOUNTER 2021-05-13 10:53 | Day surgery (SDC) | payer MEDICARE, BC ==
[~2021-05-13 10:53] MED LIST: Lactated Ringers 1,000 ML IV SCH
[2021-05-13] MEDS ORDERED: ceFAZolin 1 GM Vial ONE (12:14)
[2021-05-13] MEDS ORDERED: Propofol 200 MG/20 ML SDV ONE ×3 (12:14→13:02)
[2021-05-13] MEDS ORDERED: Ketamine 200 MG/20 ML MDV ONE (12:14)
[2021-05-13] MEDS ORDERED: fentaNYL 100 MCG/2 ML SDV ONE (12:14)
[2021-05-13] MEDS ORDERED: Succinylcholine 200 MG/10 ML MDV ONE (12:18)
[2021-05-13] MEDS ORDERED: Bupivacaine 0.5%/EPINEPHrine 1:200,000 30 ML SDV ONE (12:31)
[2021-05-13] MEDS ORDERED: Bupivacaine 0.5%/EPINEPHrine 1:200,000 30 ML SDV INJECT ONE ×2 (12:56)
[2021-05-13 14:50] VITALS: BP 144/79; PULSE 51
--- NOTE | 2021-05-14 10:30 | OR ---
PREOPERATIVE DIAGNOSIS: Anal fissure. POSTOPERATIVE DIAGNOSIS: Anal fissure. PROCEDURE PERFORMED: Lateral sphincterotomy. SPECIMENS: None. COMPLICATIONS: None. ESTIMATED BLOOD LOSS: 5 mL. DESCRIPTION OF PROCEDURE: This was done in the operating room. General anesthetic was administered. He was placed in a prone santos-knife position. A rectal exam was done. I went lateral and opened up the anoderm, found the underlying sphincter muscle, cauterized 3 to 4 mm of it, then reclosed the anoderm with 3-0 Vicryl interrupted sutures. 20 mL of 0.5% Marcaine was inserted into the skin and subcutaneous tissue. Dressing was applied. Patient was brought to the PACU postop to be sent home later today. BKD: 05/13/2021 13:09:26 MODL: 05/13/2021 20:59:18 /[id number]
== END 2021-05-13 15:45 | disposition home or self-care (01) ==
LOC: VM.SDS 10:53
PROVIDERS: ATTEND Surgery
DX: K60.2 Anal fissure, unspecified (principal); G47.30 Sleep apnea, unspecified; G62.9 Polyneuropathy, unspecified; N32.81 Overactive bladder; Z88.5 Allergy status to narcotic agent; Z88.8 Allergy status to other drugs, medicaments and biological substances; Z88.1 Allergy status to other antibiotic agents; Z79.899 Other long term (current) drug therapy
CPT/HCPCS: 00902; J0330; J0690; J2704; J3010; J3490; J7120

== ENCOUNTER 2021-07-05 13:52 | Emergency (ER) | payer MEDICARE, BC ==
[2021-07-05 15:09] VITALS: BP 122/83; PULSE 64
== END 2021-07-05 15:03 | disposition home or self-care (01) ==
LOC: VM.ED 13:52
DX: T83.091A Other mechanical complication of indwelling urethral catheter, initial encounter (principal); Z88.1 Allergy status to other antibiotic agents; Z91.010 Allergy to peanuts; Z91.048 Other nonmedicinal substance allergy status; Z91.011 Allergy to milk products; Z88.8 Allergy status to other drugs, medicaments and biological substances
CPT/HCPCS: 99283

== ENCOUNTER 2022-04-11 13:33 | Inpatient (IN) | payer MEDICARE, BC ==
[2022-04-11] MEDS ORDERED: Sodium Chloride 0.9% 10 ML Syringe FLUSH PRN (13:42)
[2022-04-11] MEDS ORDERED: Ondansetron 4 MG/2 ML SDV IVPUSH ONE (13:45)
[2022-04-11] MEDS ORDERED: Sodium Chloride 0.9% 1,000 ML IV SCH (13:45)
[2022-04-11 14:35] LABS: PTT,PARTIAL THROMBOPLSTIN TIME 37.9 SEC (20.5-30.9)
[2022-04-11 14:44] LABS: CHLORIDE,CL 93 mmol/L (98-107)
[2022-04-11 14:47] LABS: ANION GAP 13.6 mmol/L (5-15); ESTIMATED GFR 88 mL/min (>=60); SODIUM,NA 129 mmol/L (136-145)
[2022-04-11 14:58] LABS: CORONAVIRUS COVID-19 NAA NEGATIVE (NEGATIVE)
[2022-04-11 14:59] LABS: RESPIRATORY SYNCYTIAL VIR NAA NEGATIVE (NEGATIVE)
[2022-04-11] MEDS ORDERED: Ciprofloxacin in D5W 400 MG in Premix Bag 1 BAG IV SCH ×2 (15:00)
[2022-04-11] MEDS ORDERED: Acetaminophen/HYDROcodone 325-5 MG Tab PO PRN (16:46)
[2022-04-11] MEDS ORDERED: Ondansetron 4 MG/2 ML SDV IVPUSH PRN (16:46)
[2022-04-11 16:54] VITALS: PULSE 72
[2022-04-11 16:58] VITALS: BP 106/72
[2022-04-11] MEDS ORDERED: Menthol 10%/Methyl Salicylate 15% 85 GM Tube TOP PRN (20:15)
[2022-04-11] MEDS ORDERED: Acetaminophen/HYDROcodone 325-5 MG Tab ONE (20:29)
[2022-04-11] MEDS ORDERED: Pramipexole 0.5 MG Tab ONE (20:30)
[2022-04-11] MEDS ORDERED: Gabapentin 100 MG Cap ONE (20:31)
[2022-04-11] MEDS ORDERED: Timolol Maleate 0.5% Ophth Soln 5 ML Bottle ONE (20:32)
[2022-04-11] MEDS ORDERED: Diclofenac Sodium 1% Gel 100 GM Tube ONE (20:33)
[2022-04-11] MEDS ORDERED: Latanoprost 0.005% Ophth Soln 2.5 ML Bottle ONE (20:57)
[2022-04-11] MEDS ORDERED: Hydrocortisone 2.5% Crm 30 GM Tube ONE (20:57)
[2022-04-11] MEDS ORDERED: Dorzolamide 2% Ophth Soln 10 ML Bottle EYEBOTH SCH (21:00)
[2022-04-11] MEDS ORDERED: Trospium 20 MG Tab PO SCH (21:00)
[2022-04-11] MEDS ORDERED: Timolol Maleate 0.5% Ophth Soln 5 ML Bottle EYEBOTH SCH (21:00)
[2022-04-11] MEDS ORDERED: Gabapentin 100 MG Cap PO SCH (21:00)
[2022-04-11] MEDS ORDERED: Pramipexole 0.5 MG Tab PO SCH (21:00)
[2022-04-11] MEDS ORDERED: Diclofenac Sodium 1% Gel 100 GM Tube TOP SCH (21:00)
[2022-04-11] MEDS ORDERED: Latanoprost 0.005% Ophth Soln 2.5 ML Bottle EYEBOTH SCH (21:00)
[2022-04-12] MEDS ORDERED: Menthol 10%/Methyl Salicylate 15% 85 GM Tube ONE (04:01)
[2022-04-12] MEDS ORDERED: Ciprofloxacin in D5W 200 ML ONE ×2 (04:48→17:10)
[2022-04-12] MEDS ORDERED: Acetaminophen/HYDROcodone 325-5 MG Tab ONE ×2 (08:56→19:50)
[2022-04-12] MEDS ORDERED: Gabapentin 100 MG Cap ONE ×2 (08:57→19:21)
[2022-04-12] MEDS ORDERED: Citalopram 20 MG Tab ONE (08:57)
[2022-04-12] MEDS ORDERED: buPROPion 150 MG Tab.ER ONE (08:57)
[2022-04-12] MEDS ORDERED: Trospium 20 MG Tab ONE ×2 (08:57→19:22)
[2022-04-12] MEDS ORDERED: Docusate Sodium 100 MG Cap PO SCH (09:00)
[2022-04-12] MEDS ORDERED: Hydrocortisone 2.5% Crm 30 GM Tube TOP PRN (09:00)
[2022-04-12] MEDS ORDERED: Donepezil 10 MG Tab PO SCH (09:00)
[2022-04-12] MEDS ORDERED: RHOPRESSA 0.02% EYEBOTH SCH (09:00)
[2022-04-12] MEDS ORDERED: Enoxaparin 40 MG/0.4 ML Syringe SUBCUT SCH (09:00)
[2022-04-12] MEDS ORDERED: Citalopram 20 MG Tab PO SCH (09:00)
[2022-04-12] MEDS ORDERED: EYE EYEBOTH SCH (09:00)
[2022-04-12] MEDS ORDERED: buPROPion 150 MG Tab.ER PO SCH (09:00)
[2022-04-12] MEDS ORDERED: Dorzolamide 2% Ophth Soln 10 ML Bottle ONE (09:26)
[2022-04-12] MEDS ORDERED: Docusate Sodium 100 MG Cap ONE ×2 (09:26→19:24)
[2022-04-12] MEDS ORDERED: Donepezil 10 MG Tab ONE (09:37)
[2022-04-12] MEDS ORDERED: Enoxaparin 40 MG/0.4 ML Syringe ONE (10:54)
[2022-04-12] MEDS ORDERED: Pramipexole 0.5 MG Tab ONE (19:23)
[2022-04-13] MEDS ORDERED: Ciprofloxacin in D5W 200 ML ONE ×2 (04:30→17:40)
[2022-04-13] MEDS ORDERED: Docusate Sodium 100 MG Cap ONE ×2 (08:20→19:27)
[2022-04-13] MEDS ORDERED: Donepezil 10 MG Tab ONE (08:21)
[2022-04-13] MEDS ORDERED: buPROPion 150 MG Tab.ER ONE (08:21)
[2022-04-13] MEDS ORDERED: Citalopram 20 MG Tab ONE (08:21)
[2022-04-13] MEDS ORDERED: Trospium 20 MG Tab ONE ×2 (08:21→19:24)
[2022-04-13] MEDS ORDERED: Enoxaparin 40 MG/0.4 ML Syringe ONE (08:22)
[2022-04-13] MEDS ORDERED: Polyethylene Glycol 3350 Powder 17 GM Packet ONE (08:22)
[2022-04-13] MEDS ORDERED: Gabapentin 100 MG Cap ONE ×2 (08:28→19:26)
[2022-04-13] MEDS ORDERED: Pramipexole 0.5 MG Tab ONE (19:25)
[2022-04-13] MEDS ORDERED: Acetaminophen/HYDROcodone 325-5 MG Tab ONE (19:57)
[2022-04-13] MEDS ORDERED: methylPREDNISolone Sodium Succinate 40 MG/1 ML SDV ONE (20:04)
[2022-04-14] MEDS ORDERED: Ciprofloxacin in D5W 200 ML ONE (04:05)
[2022-04-14] MEDS ORDERED: Gabapentin 100 MG Cap ONE ×2 (08:20→19:46)
[2022-04-14] MEDS ORDERED: Docusate Sodium 100 MG Cap ONE ×2 (08:20→19:46)
[2022-04-14] MEDS ORDERED: Citalopram 20 MG Tab ONE (08:21)
[2022-04-14] MEDS ORDERED: Trospium 20 MG Tab ONE ×2 (08:21→19:46)
[2022-04-14] MEDS ORDERED: Donepezil 10 MG Tab ONE (08:21)
[2022-04-14] MEDS ORDERED: buPROPion 150 MG Tab.ER ONE (08:21)
[2022-04-14] MEDS ORDERED: Enoxaparin 40 MG/0.4 ML Syringe ONE (08:22)
[2022-04-14] MEDS ORDERED: Sodium Chloride 1 GM Tab ONE ×2 (11:51→19:45)
[2022-04-14] MEDS ORDERED: Ciprofloxacin 500 MG Tab ONE ×2 (11:51→19:45)
[2022-04-14] MEDS ORDERED: Bisacodyl 10 MG Supp ONE (11:52)
[2022-04-14] MEDS ORDERED: Sodium Chloride 1 GM Tab PO SCH (13:00)
[2022-04-14] MEDS ORDERED: Polyethylene Glycol 3350 Powder 17 GM Packet PO SCH (18:00)
[2022-04-14] MEDS ORDERED: Polyethylene Glycol 3350 Powder 17 GM Packet ONE (18:14)
[2022-04-14] MEDS ORDERED: Pramipexole 0.5 MG Tab ONE (19:46)
[2022-04-14] MEDS ORDERED: Acetaminophen/HYDROcodone 325-5 MG Tab ONE (19:57)
[2022-04-14] MEDS ORDERED: Ciprofloxacin 500 MG Tab PO SCH (21:00)
[2022-04-15] MEDS ORDERED: Sodium Chloride 1 GM Tab ONE ×2 (07:25→12:42)
[2022-04-15] MEDS ORDERED: Citalopram 20 MG Tab ONE (07:25)
[2022-04-15] MEDS ORDERED: Trospium 20 MG Tab ONE (07:25)
[2022-04-15] MEDS ORDERED: Enoxaparin 40 MG/0.4 ML Syringe ONE (07:26)
[2022-04-15] MEDS ORDERED: buPROPion 150 MG Tab.ER ONE (07:26)
[2022-04-15] MEDS ORDERED: Polyethylene Glycol 3350 Powder 17 GM Packet ONE ×2 (07:26→17:08)
[2022-04-15] MEDS ORDERED: Ciprofloxacin 500 MG Tab ONE (07:28)
[2022-04-15] MEDS ORDERED: Docusate Sodium 100 MG Cap ONE (07:46)
[2022-04-15] MEDS ORDERED: Donepezil 10 MG Tab ONE (07:46)
== END 2022-04-15 14:00 | disposition still patient (30) | DRG 690 ==
LOC: VM.ED 13:33 → VM.MS 15:23 → VM.ED 16:10
PROVIDERS: ADMIT Family Medicine; ATTEND Family Medicine
DX: N39.0 Urinary tract infection, site not specified (principal); R53.1 Weakness; E87.1 Hypo-osmolality and hyponatremia; H91.90 Unspecified hearing loss, unspecified ear; M54.9 Dorsalgia, unspecified; G89.29 Other chronic pain; G47.30 Sleep apnea, unspecified; F32.A Depression, unspecified; G62.9 Polyneuropathy, unspecified; G30.9 Alzheimer's disease, unspecified; Z96.649 Presence of unspecified artificial hip joint; Z96.659 Presence of unspecified artificial knee joint; M19.90 Unspecified osteoarthritis, unspecified site; Z20.822 Contact with and (suspected) exposure to COVID-19; F02.80 Dementia in other diseases classified elsewhere, unspecified severity, without behavioral disturbance, psychotic disturbance, mood disturbance, and anxiety; G25.81 Restless legs syndrome; K59.00 Constipation, unspecified; F41.1 Generalized anxiety disorder; Z85.46 Personal history of malignant neoplasm of prostate; K64.9 Unspecified hemorrhoids; Z88.5 Allergy status to narcotic agent; Z87.440 Personal history of urinary (tract) infections; Z91.048 Other nonmedicinal substance allergy status; Z91.011 Allergy to milk products; Z88.8 Allergy status to other drugs, medicaments and biological substances; Z91.09 Other allergy status, other than to drugs and biological substances; Z79.899 Other long term (current) drug therapy; Z88.1 Allergy status to other antibiotic agents; Z91.010 Allergy to peanuts
CPT/HCPCS: 0241U; 36415; 80053; 81001; 83605; 83735; 83880; 84100; 84484; 85025; 85610; 85730; 86140; 87040; 87086; 87088; 87186; 93005; A9270-GY; J0744; J2405; J7030

== ENCOUNTER 2022-04-15 14:00 | Inpatient (IN) | payer MEDICARE, BC ==
[~2022-04-15 14:00] MED LIST changes: +Acetaminophen/HYDROcodone 325-5 MG Tab PO PRN; -Lactated Ringers 1,000 ML IV SCH
[2022-04-15] MEDS ORDERED: Ondansetron 4 MG/2 ML SDV IVPUSH PRN (17:40)
[2022-04-15] MEDS ORDERED: Menthol 10%/Methyl Salicylate 15% 85 GM Tube TOP PRN (17:43)
[2022-04-15] MEDS ORDERED: Hydrocortisone 2.5% Crm 30 GM Tube TOP PRN (17:44)
[2022-04-15] MEDS: Polyethylene Glycol 3350 Powder 17 GM Packet PO SCH (18:53)
[2022-04-15] MEDS: Docusate Sodium 100 MG Cap PO SCH (20:09)
[2022-04-15] MEDS: Pramipexole 0.5 MG Tab PO SCH (20:09)
[2022-04-15] MEDS: Ciprofloxacin 500 MG Tab PO SCH (20:09)
[2022-04-15] MEDS: Sodium Chloride 1 GM Tab PO SCH (20:10)
[2022-04-15] MEDS: Trospium 20 MG Tab PO SCH (20:10)
[2022-04-15] MEDS: Dorzolamide 2% Ophth Soln 10 ML Bottle EYEBOTH SCH (20:17)
[2022-04-15] MEDS: Latanoprost 0.005% Ophth Soln 2.5 ML Bottle EYEBOTH SCH (20:17)
[2022-04-15] MEDS: Timolol Maleate 0.5% Ophth Soln 5 ML Bottle EYEBOTH SCH (20:18)
[2022-04-15] MEDS: Diclofenac Sodium 1% Gel 100 GM Tube TOP SCH (20:19)
[2022-04-15] MEDS: Gabapentin 100 MG Cap PO SCH (23:42)
[2022-04-16] MEDS: Trospium 20 MG Tab PO SCH ×2 (08:25→20:15)
[2022-04-16] MEDS: Sodium Chloride 1 GM Tab PO SCH ×3 (08:25→20:15)
[2022-04-16] MEDS: buPROPion 150 MG Tab.ER PO SCH (08:25)
[2022-04-16] MEDS: Citalopram 20 MG Tab PO SCH (08:26)
[2022-04-16] MEDS: Donepezil 10 MG Tab PO SCH (08:29)
[2022-04-16] MEDS: Ciprofloxacin 500 MG Tab PO SCH ×2 (08:29→20:15)
[2022-04-16] MEDS: Docusate Sodium 100 MG Cap PO SCH ×2 (08:29→20:19)
[2022-04-16] MEDS: Gabapentin 100 MG Cap PO SCH ×2 (08:30→22:13)
[2022-04-16] MEDS: Polyethylene Glycol 3350 Powder 17 GM Packet PO SCH ×2 (08:31→18:18)
[2022-04-16] MEDS: Enoxaparin 40 MG/0.4 ML Syringe SUBCUT SCH (08:31)
[2022-04-16] MEDS: Dorzolamide 2% Ophth Soln 10 ML Bottle EYEBOTH SCH ×2 (08:31→20:15)
[2022-04-16] MEDS: EYE EYEBOTH SCH (08:34)
[2022-04-16] MEDS: Timolol Maleate 0.5% Ophth Soln 5 ML Bottle EYEBOTH SCH ×2 (08:34→20:14)
[2022-04-16] MEDS: RHOPRESSA 0.02% EYEBOTH SCH (08:34)
[2022-04-16] MEDS: Diclofenac Sodium 1% Gel 100 GM Tube TOP SCH ×4 (08:35→20:17)
[2022-04-16] MEDS: Latanoprost 0.005% Ophth Soln 2.5 ML Bottle EYEBOTH SCH (20:14)
[2022-04-16] MEDS: Pramipexole 0.5 MG Tab PO SCH (20:15)
[2022-04-17 07:23] LABS: ANION GAP 11.7 mmol/L (5-15)
[2022-04-17] MEDS: Enoxaparin 40 MG/0.4 ML Syringe SUBCUT SCH (09:08)
[2022-04-17] MEDS: Ciprofloxacin 500 MG Tab PO SCH ×2 (09:09→21:23)
[2022-04-17] MEDS: Citalopram 20 MG Tab PO SCH (09:09)
[2022-04-17] MEDS: Polyethylene Glycol 3350 Powder 17 GM Packet PO SCH ×2 (09:09→17:48)
[2022-04-17] MEDS: Gabapentin 100 MG Cap PO SCH ×3 (09:10→21:23)
[2022-04-17] MEDS: Donepezil 10 MG Tab PO SCH (09:10)
[2022-04-17] MEDS: Trospium 20 MG Tab PO SCH ×2 (09:10→21:24)
[2022-04-17] MEDS: Docusate Sodium 100 MG Cap PO SCH ×2 (09:10→21:23)
[2022-04-17] MEDS: Sodium Chloride 1 GM Tab PO SCH ×3 (09:10→21:23)
[2022-04-17] MEDS: Diclofenac Sodium 1% Gel 100 GM Tube TOP SCH ×4 (09:11→21:24)
[2022-04-17] MEDS: Dorzolamide 2% Ophth Soln 10 ML Bottle EYEBOTH SCH ×2 (09:12→21:27)
[2022-04-17] MEDS: Timolol Maleate 0.5% Ophth Soln 5 ML Bottle EYEBOTH SCH ×2 (09:12→21:28)
[2022-04-17] MEDS: EYE EYEBOTH SCH (09:13)
[2022-04-17] MEDS: RHOPRESSA 0.02% EYEBOTH SCH (09:13)
[2022-04-17] MEDS: buPROPion 150 MG Tab.ER PO SCH (09:17)
[2022-04-17] MEDS: Pantoprazole 20 MG Tab, Delayed Release PO SCH (12:27)
[2022-04-17] MEDS: Pramipexole 0.5 MG Tab PO SCH (21:23)
[2022-04-17] MEDS: Latanoprost 0.005% Ophth Soln 2.5 ML Bottle EYEBOTH SCH (21:25)
[2022-04-18] MEDS: Pantoprazole 20 MG Tab, Delayed Release PO SCH (06:06)
[2022-04-18] MEDS: Diclofenac Sodium 1% Gel 100 GM Tube TOP SCH ×4 (08:32→20:21)
[2022-04-18] MEDS: Sodium Chloride 1 GM Tab PO SCH ×3 (08:34→20:18)
[2022-04-18] MEDS: Ciprofloxacin 500 MG Tab PO SCH (08:34)
[2022-04-18] MEDS: Polyethylene Glycol 3350 Powder 17 GM Packet PO SCH ×2 (08:34→17:44)
[2022-04-18] MEDS: Citalopram 20 MG Tab PO SCH (08:34)
[2022-04-18] MEDS: Trospium 20 MG Tab PO SCH ×2 (08:34→20:18)
[2022-04-18] MEDS: buPROPion 150 MG Tab.ER PO SCH (08:34)
[2022-04-18] MEDS: Docusate Sodium 100 MG Cap PO SCH ×2 (08:34→20:19)
[2022-04-18] MEDS: Enoxaparin 40 MG/0.4 ML Syringe SUBCUT SCH (08:35)
[2022-04-18] MEDS: Gabapentin 100 MG Cap PO SCH ×2 (08:35→20:18)
[2022-04-18] MEDS: Donepezil 10 MG Tab PO SCH (08:35)
[2022-04-18] MEDS: RHOPRESSA 0.02% EYEBOTH SCH (08:37)
[2022-04-18] MEDS: Dorzolamide 2% Ophth Soln 10 ML Bottle EYEBOTH SCH ×2 (08:37→20:14)
[2022-04-18] MEDS: EYE EYEBOTH SCH (08:37)
[2022-04-18] MEDS: Timolol Maleate 0.5% Ophth Soln 5 ML Bottle EYEBOTH SCH ×2 (08:40→20:15)
[2022-04-18 16:46] LABS: ANION GAP 11.6 mmol/L (5-15)
[2022-04-18] MEDS: Latanoprost 0.005% Ophth Soln 2.5 ML Bottle EYEBOTH SCH (20:15)
[2022-04-18] MEDS: Pramipexole 0.5 MG Tab PO SCH (20:18)
[2022-04-18] MEDS: Nitrofurantoin Monohydrate/Macrocrystalline 100 MG Cap PO SCH (22:03)
[2022-04-19] MEDS: Pantoprazole 20 MG Tab, Delayed Release PO SCH (06:13)
[2022-04-19] MEDS: RHOPRESSA 0.02% EYEBOTH SCH (08:32)
[2022-04-19] MEDS: Dorzolamide 2% Ophth Soln 10 ML Bottle EYEBOTH SCH ×2 (08:32→20:44)
[2022-04-19] MEDS: EYE EYEBOTH SCH (08:32)
[2022-04-19] MEDS: Enoxaparin 40 MG/0.4 ML Syringe SUBCUT SCH (08:37)
[2022-04-19] MEDS: Nitrofurantoin Monohydrate/Macrocrystalline 100 MG Cap PO SCH ×2 (08:38→20:42)
[2022-04-19] MEDS: buPROPion 150 MG Tab.ER PO SCH (08:38)
[2022-04-19] MEDS: Donepezil 10 MG Tab PO SCH (08:38)
[2022-04-19] MEDS: Citalopram 20 MG Tab PO SCH (08:38)
[2022-04-19] MEDS: Gabapentin 100 MG Cap PO SCH ×2 (08:38→20:42)
[2022-04-19] MEDS: Trospium 20 MG Tab PO SCH ×2 (08:39→20:43)
[2022-04-19] MEDS: Sodium Chloride 1 GM Tab PO SCH ×3 (08:39→20:43)
[2022-04-19] MEDS: Polyethylene Glycol 3350 Powder 17 GM Packet PO SCH ×2 (08:39→17:30)
[2022-04-19] MEDS: Docusate Sodium 100 MG Cap PO SCH ×2 (08:39→20:44)
[2022-04-19] MEDS: Diclofenac Sodium 1% Gel 100 GM Tube TOP SCH ×4 (08:39→20:45)
[2022-04-19] MEDS: Timolol Maleate 0.5% Ophth Soln 5 ML Bottle EYEBOTH SCH ×2 (08:40→20:43)
[2022-04-19] MEDS: Latanoprost 0.005% Ophth Soln 2.5 ML Bottle EYEBOTH SCH (20:43)
[2022-04-19] MEDS: Pramipexole 0.5 MG Tab PO SCH (20:43)
[2022-04-20] MEDS: Pantoprazole 20 MG Tab, Delayed Release PO SCH (06:52)
[2022-04-20] MEDS: Citalopram 20 MG Tab PO SCH (09:20)
[2022-04-20] MEDS: Enoxaparin 40 MG/0.4 ML Syringe SUBCUT SCH (09:20)
[2022-04-20] MEDS: Nitrofurantoin Monohydrate/Macrocrystalline 100 MG Cap PO SCH ×2 (09:20→20:10)
[2022-04-20] MEDS: buPROPion 150 MG Tab.ER PO SCH (09:21)
[2022-04-20] MEDS: Donepezil 10 MG Tab PO SCH (09:21)
[2022-04-20] MEDS: Trospium 20 MG Tab PO SCH ×2 (09:21→20:09)
[2022-04-20] MEDS: Diclofenac Sodium 1% Gel 100 GM Tube TOP SCH ×4 (09:21→20:11)
[2022-04-20] MEDS: Gabapentin 100 MG Cap PO SCH ×2 (09:21→20:10)
[2022-04-20] MEDS: Sodium Chloride 1 GM Tab PO SCH ×3 (09:21→20:09)
[2022-04-20] MEDS: Polyethylene Glycol 3350 Powder 17 GM Packet PO SCH ×2 (09:22→18:06)
[2022-04-20] MEDS: Docusate Sodium 100 MG Cap PO SCH ×2 (09:22→20:11)
[2022-04-20] MEDS: Dorzolamide 2% Ophth Soln 10 ML Bottle EYEBOTH SCH ×2 (09:23→20:09)
[2022-04-20] MEDS: RHOPRESSA 0.02% EYEBOTH SCH (09:23)
[2022-04-20] MEDS: Timolol Maleate 0.5% Ophth Soln 5 ML Bottle EYEBOTH SCH ×2 (09:23→20:09)
[2022-04-20] MEDS: EYE EYEBOTH SCH (09:23)
[2022-04-20] MEDS: Pramipexole 0.5 MG Tab PO SCH (20:09)
[2022-04-20] MEDS: Latanoprost 0.005% Ophth Soln 2.5 ML Bottle EYEBOTH SCH (20:09)
[2022-04-21] MEDS: Pantoprazole 20 MG Tab, Delayed Release PO SCH (06:22)
[2022-04-21] MEDS: EYE EYEBOTH SCH (09:39)
[2022-04-21] MEDS: RHOPRESSA 0.02% EYEBOTH SCH (09:39)
[2022-04-21] MEDS: Dorzolamide 2% Ophth Soln 10 ML Bottle EYEBOTH SCH ×2 (09:40→20:19)
[2022-04-21] MEDS: Timolol Maleate 0.5% Ophth Soln 5 ML Bottle EYEBOTH SCH ×2 (09:40→20:19)
[2022-04-21] MEDS: Citalopram 20 MG Tab PO SCH (09:41)
[2022-04-21] MEDS: buPROPion 150 MG Tab.ER PO SCH (09:41)
[2022-04-21] MEDS: Donepezil 10 MG Tab PO SCH (09:41)
[2022-04-21] MEDS: Nitrofurantoin Monohydrate/Macrocrystalline 100 MG Cap PO SCH ×2 (09:41→20:19)
[2022-04-21] MEDS: Docusate Sodium 100 MG Cap PO SCH ×2 (09:41→20:20)
[2022-04-21] MEDS: Sodium Chloride 1 GM Tab PO SCH ×3 (09:41→20:19)
[2022-04-21] MEDS: Gabapentin 100 MG Cap PO SCH ×2 (09:41→20:19)
[2022-04-21] MEDS: Polyethylene Glycol 3350 Powder 17 GM Packet PO SCH ×2 (09:42→17:32)
[2022-04-21] MEDS: Diclofenac Sodium 1% Gel 100 GM Tube TOP SCH ×4 (09:49→20:20)
[2022-04-21] MEDS: Trospium 20 MG Tab PO SCH ×2 (09:49→20:19)
[2022-04-21] MEDS: Enoxaparin 40 MG/0.4 ML Syringe SUBCUT SCH (09:49)
[2022-04-21] MEDS: Pramipexole 0.5 MG Tab PO SCH (20:18)
[2022-04-21] MEDS: Latanoprost 0.005% Ophth Soln 2.5 ML Bottle EYEBOTH SCH (20:19)
[2022-04-22] MEDS: Pantoprazole 20 MG Tab, Delayed Release PO SCH (06:51)
[2022-04-22] MEDS: Docusate Sodium 100 MG Cap PO SCH (08:18)
[2022-04-22] MEDS: Polyethylene Glycol 3350 Powder 17 GM Packet PO SCH (08:18)
[2022-04-22] MEDS: Gabapentin 100 MG Cap PO SCH ×2 (08:19→20:04)
[2022-04-22] MEDS: EYE EYEBOTH SCH (08:33)
[2022-04-22] MEDS: RHOPRESSA 0.02% EYEBOTH SCH (08:33)
[2022-04-22] MEDS: Timolol Maleate 0.5% Ophth Soln 5 ML Bottle EYEBOTH SCH ×2 (08:33→20:03)
[2022-04-22] MEDS: Dorzolamide 2% Ophth Soln 10 ML Bottle EYEBOTH SCH ×2 (08:38→20:03)
[2022-04-22] MEDS: Diclofenac Sodium 1% Gel 100 GM Tube TOP SCH ×4 (08:39→20:04)
[2022-04-22] MEDS: Citalopram 20 MG Tab PO SCH (08:45)
[2022-04-22] MEDS: buPROPion 150 MG Tab.ER PO SCH (08:46)
[2022-04-22] MEDS: Donepezil 10 MG Tab PO SCH (08:46)
[2022-04-22] MEDS: Sodium Chloride 1 GM Tab PO SCH ×3 (08:47→20:04)
[2022-04-22] MEDS: Trospium 20 MG Tab PO SCH ×2 (08:48→20:04)
[2022-04-22] MEDS: Enoxaparin 40 MG/0.4 ML Syringe SUBCUT SCH (08:48)
[2022-04-22] MEDS ORDERED: Polyethylene Glycol 3350 Powder 17 GM Packet PO PRN (11:58)
[2022-04-22] MEDS ORDERED: Docusate Sodium 100 MG Cap PO PRN (11:58)
[2022-04-22] MEDS: Metoclopramide 5 MG Tab PO PRN (13:25)
[2022-04-22] MEDS: Latanoprost 0.005% Ophth Soln 2.5 ML Bottle EYEBOTH SCH (20:03)
[2022-04-22] MEDS: Pramipexole 0.5 MG Tab PO SCH (20:04)
[2022-04-23] MEDS: Pantoprazole 20 MG Tab, Delayed Release PO SCH ×2 (05:49→06:56)
[2022-04-23 07:27] LABS: ANION GAP 8.7 mmol/L (5-15)
[2022-04-23] MEDS: Sodium Chloride 1 GM Tab PO SCH ×3 (08:11→19:59)
[2022-04-23] MEDS: Donepezil 10 MG Tab PO SCH (08:11)
[2022-04-23] MEDS: Trospium 20 MG Tab PO SCH ×2 (08:11→19:59)
[2022-04-23] MEDS: buPROPion 150 MG Tab.ER PO SCH (08:11)
[2022-04-23] MEDS: Enoxaparin 40 MG/0.4 ML Syringe SUBCUT SCH (08:11)
[2022-04-23] MEDS: Potassium Chloride 10 MEQ Tab.ER PO SCH ×2 (08:12→17:41)
[2022-04-23] MEDS: Dorzolamide 2% Ophth Soln 10 ML Bottle EYEBOTH SCH ×2 (08:14→20:10)
[2022-04-23] MEDS: EYE EYEBOTH SCH (08:14)
[2022-04-23] MEDS: RHOPRESSA 0.02% EYEBOTH SCH (08:14)
[2022-04-23] MEDS: Diclofenac Sodium 1% Gel 100 GM Tube TOP SCH ×4 (08:15→19:59)
[2022-04-23] MEDS: Timolol Maleate 0.5% Ophth Soln 5 ML Bottle EYEBOTH SCH ×2 (08:17→20:00)
[2022-04-23] MEDS: Pramipexole 0.5 MG Tab PO SCH (19:59)
[2022-04-23] MEDS: Gabapentin 100 MG Cap PO SCH (19:59)
[2022-04-23] MEDS: Latanoprost 0.005% Ophth Soln 2.5 ML Bottle EYEBOTH SCH (20:00)
[2022-04-24] MEDS: Pantoprazole 20 MG Tab, Delayed Release PO SCH (06:17)
[2022-04-24] MEDS: Donepezil 10 MG Tab PO SCH (08:46)
[2022-04-24] MEDS: Potassium Chloride 10 MEQ Tab.ER PO SCH ×2 (08:47→19:12)
[2022-04-24] MEDS: buPROPion 150 MG Tab.ER PO SCH (08:47)
[2022-04-24] MEDS: Sodium Chloride 1 GM Tab PO SCH ×3 (08:47→20:23)
[2022-04-24] MEDS: Trospium 20 MG Tab PO SCH ×2 (08:48→20:23)
[2022-04-24] MEDS: Timolol Maleate 0.5% Ophth Soln 5 ML Bottle EYEBOTH SCH ×2 (08:49→20:26)
[2022-04-24] MEDS: Diclofenac Sodium 1% Gel 100 GM Tube TOP SCH ×4 (08:50→20:24)
[2022-04-24] MEDS: Enoxaparin 40 MG/0.4 ML Syringe SUBCUT SCH (08:51)
[2022-04-24] MEDS: RHOPRESSA 0.02% EYEBOTH SCH (08:52)
[2022-04-24] MEDS: EYE EYEBOTH SCH (08:52)
[2022-04-24] MEDS: Dorzolamide 2% Ophth Soln 10 ML Bottle EYEBOTH SCH ×2 (08:52→20:25)
[2022-04-24] MEDS: Gabapentin 100 MG Cap PO SCH (20:24)
[2022-04-24] MEDS: Pramipexole 0.5 MG Tab PO SCH (20:24)
[2022-04-24] MEDS: Latanoprost 0.005% Ophth Soln 2.5 ML Bottle EYEBOTH SCH (20:25)
[2022-04-25] MEDS: Pantoprazole 20 MG Tab, Delayed Release PO SCH (06:10)
[2022-04-25 06:58] LABS: ANION GAP 10.9 mmol/L (5-15)
[2022-04-25] MEDS: Dorzolamide 2% Ophth Soln 10 ML Bottle EYEBOTH SCH ×2 (09:45→20:34)
[2022-04-25] MEDS: Timolol Maleate 0.5% Ophth Soln 5 ML Bottle EYEBOTH SCH ×2 (09:45→20:33)
[2022-04-25] MEDS: RHOPRESSA 0.02% EYEBOTH SCH (09:46)
[2022-04-25] MEDS: EYE EYEBOTH SCH (09:46)
[2022-04-25] MEDS: Sodium Chloride 1 GM Tab PO SCH ×3 (09:46→20:32)
[2022-04-25] MEDS: Trospium 20 MG Tab PO SCH ×2 (09:47→20:32)
[2022-04-25] MEDS: Potassium Chloride 10 MEQ Tab.ER PO SCH ×2 (09:47→18:26)
[2022-04-25] MEDS: buPROPion 150 MG Tab.ER PO SCH (09:47)
[2022-04-25] MEDS: Diclofenac Sodium 1% Gel 100 GM Tube TOP SCH ×4 (09:48→20:34)
[2022-04-25] MEDS: Donepezil 10 MG Tab PO SCH (09:48)
[2022-04-25] MEDS: Enoxaparin 40 MG/0.4 ML Syringe SUBCUT SCH (09:48)
[2022-04-25 15:05] LABS: ANION GAP 9.4 mmol/L (5-15)
[2022-04-25 15:25] LABS: ANION GAP 9.4 mmol/L (5-15)
[2022-04-25 16:34] LABS: ANION GAP 8.6 mmol/L (5-15)
[2022-04-25] MEDS: Gabapentin 100 MG Cap PO SCH (20:32)
[2022-04-25] MEDS: Pramipexole 0.5 MG Tab PO SCH (20:33)
[2022-04-25] MEDS: Latanoprost 0.005% Ophth Soln 2.5 ML Bottle EYEBOTH SCH (20:34)
[2022-04-26] MEDS: Pantoprazole 20 MG Tab, Delayed Release PO SCH (06:01)
[2022-04-26] MEDS: buPROPion 150 MG Tab.ER PO SCH (08:41)
[2022-04-26] MEDS: Enoxaparin 40 MG/0.4 ML Syringe SUBCUT SCH (08:42)
[2022-04-26] MEDS: Sodium Chloride 1 GM Tab PO SCH ×3 (08:42→20:21)
[2022-04-26] MEDS: Donepezil 10 MG Tab PO SCH (08:42)
[2022-04-26] MEDS: Potassium Chloride 10 MEQ Tab.ER PO SCH ×2 (08:42→17:26)
[2022-04-26] MEDS: Trospium 20 MG Tab PO SCH ×2 (08:42→20:21)
[2022-04-26] MEDS: RHOPRESSA 0.02% EYEBOTH SCH (08:43)
[2022-04-26] MEDS: EYE EYEBOTH SCH (08:43)
[2022-04-26] MEDS: Timolol Maleate 0.5% Ophth Soln 5 ML Bottle EYEBOTH SCH ×2 (08:45→20:22)
[2022-04-26] MEDS: Dorzolamide 2% Ophth Soln 10 ML Bottle EYEBOTH SCH ×2 (08:45→20:22)
[2022-04-26] MEDS: Diclofenac Sodium 1% Gel 100 GM Tube TOP SCH ×4 (09:00→20:19)
[2022-04-26] MEDS: Ciprofloxacin 500 MG Tab PO SCH ×2 (10:21→20:21)
[2022-04-26] MEDS: Pramipexole 0.5 MG Tab PO SCH (20:21)
[2022-04-26] MEDS: Gabapentin 100 MG Cap PO SCH (20:22)
[2022-04-26] MEDS: Latanoprost 0.005% Ophth Soln 2.5 ML Bottle EYEBOTH SCH (20:22)
[2022-04-27] MEDS: Pantoprazole 20 MG Tab, Delayed Release PO SCH (06:04)
[2022-04-27] MEDS: Enoxaparin 40 MG/0.4 ML Syringe SUBCUT SCH (08:17)
[2022-04-27] MEDS: Sodium Chloride 1 GM Tab PO SCH ×3 (08:17→20:07)
[2022-04-27] MEDS: Donepezil 10 MG Tab PO SCH (08:17)
[2022-04-27] MEDS: Trospium 20 MG Tab PO SCH ×2 (08:17→20:08)
[2022-04-27] MEDS: Potassium Chloride 10 MEQ Tab.ER PO SCH ×2 (08:18→18:02)
[2022-04-27] MEDS: buPROPion 150 MG Tab.ER PO SCH (08:18)
[2022-04-27] MEDS: Diclofenac Sodium 1% Gel 100 GM Tube TOP SCH ×4 (08:18→20:14)
[2022-04-27] MEDS: Ciprofloxacin 500 MG Tab PO SCH ×2 (08:18→20:08)
[2022-04-27] MEDS: Dorzolamide 2% Ophth Soln 10 ML Bottle EYEBOTH SCH ×2 (08:20→20:07)
[2022-04-27] MEDS: Timolol Maleate 0.5% Ophth Soln 5 ML Bottle EYEBOTH SCH ×2 (08:20→20:06)
[2022-04-27] MEDS: RHOPRESSA 0.02% EYEBOTH SCH (08:21)
[2022-04-27] MEDS: EYE EYEBOTH SCH (08:21)
[2022-04-27] MEDS: Gabapentin 100 MG Cap PO SCH (20:07)
[2022-04-27] MEDS: Latanoprost 0.005% Ophth Soln 2.5 ML Bottle EYEBOTH SCH (20:07)
[2022-04-27] MEDS: Pramipexole 0.5 MG Tab PO SCH (20:08)
[2022-04-28] MEDS: Pantoprazole 20 MG Tab, Delayed Release PO SCH (06:12)
[2022-04-28 07:15] LABS: ANION GAP 12.5 mmol/L (5-15)
[2022-04-28] MEDS: Trospium 20 MG Tab PO SCH ×2 (08:14→20:24)
[2022-04-28] MEDS: buPROPion 150 MG Tab.ER PO SCH (08:14)
[2022-04-28] MEDS: Enoxaparin 40 MG/0.4 ML Syringe SUBCUT SCH (08:14)
[2022-04-28] MEDS: Potassium Chloride 10 MEQ Tab.ER PO SCH ×2 (08:14→17:37)
[2022-04-28] MEDS: Timolol Maleate 0.5% Ophth Soln 5 ML Bottle EYEBOTH SCH ×2 (08:15→20:24)
[2022-04-28] MEDS: Sodium Chloride 1 GM Tab PO SCH ×3 (08:15→20:24)
[2022-04-28] MEDS: Ciprofloxacin 500 MG Tab PO SCH (08:15)
[2022-04-28] MEDS: Donepezil 10 MG Tab PO SCH (08:15)
[2022-04-28] MEDS: Dorzolamide 2% Ophth Soln 10 ML Bottle EYEBOTH SCH ×2 (08:16→20:29)
[2022-04-28] MEDS: Diclofenac Sodium 1% Gel 100 GM Tube TOP SCH ×4 (08:18→20:29)
[2022-04-28] MEDS: EYE EYEBOTH SCH (08:20)
[2022-04-28] MEDS: RHOPRESSA 0.02% EYEBOTH SCH (08:20)
[2022-04-28] MEDS: Metoclopramide 5 MG Tab PO PRN ×2 (08:33→19:00)
[2022-04-28] MEDS: Acetaminophen/HYDROcodone 325-5 MG Tab PO PRN (14:58)
[2022-04-28] MEDS: Pantoprazole 40 MG Tab.CR PO SCH (17:37)
[2022-04-28] MEDS: Gabapentin 100 MG Cap PO SCH (20:24)
[2022-04-28] MEDS: Latanoprost 0.005% Ophth Soln 2.5 ML Bottle EYEBOTH SCH (20:24)
[2022-04-28] MEDS: Pramipexole 0.5 MG Tab PO SCH (20:24)
[2022-04-29] MEDS: Acetaminophen/HYDROcodone 325-5 MG Tab PO PRN ×3 (00:12→23:02)
[2022-04-29] MEDS: Pantoprazole 40 MG Tab.CR PO SCH ×2 (06:24→17:17)
[2022-04-29] MEDS: Enoxaparin 40 MG/0.4 ML Syringe SUBCUT SCH (09:52)
[2022-04-29] MEDS: Timolol Maleate 0.5% Ophth Soln 5 ML Bottle EYEBOTH SCH ×2 (09:53→20:01)
[2022-04-29] MEDS: Dorzolamide 2% Ophth Soln 10 ML Bottle EYEBOTH SCH ×2 (09:53→20:01)
[2022-04-29] MEDS: RHOPRESSA 0.02% EYEBOTH SCH (09:54)
[2022-04-29] MEDS: Potassium Chloride 10 MEQ Tab.ER PO SCH ×2 (09:54→17:17)
[2022-04-29] MEDS: EYE EYEBOTH SCH (09:54)
[2022-04-29] MEDS: Trospium 20 MG Tab PO SCH ×2 (09:54→20:00)
[2022-04-29] MEDS: Sodium Chloride 1 GM Tab PO SCH ×3 (09:54→20:00)
[2022-04-29] MEDS: buPROPion 150 MG Tab.ER PO SCH (09:55)
[2022-04-29] MEDS: Diclofenac Sodium 1% Gel 100 GM Tube TOP SCH ×4 (09:55→20:01)
[2022-04-29] MEDS: Donepezil 10 MG Tab PO SCH (09:55)
[2022-04-29] MEDS: [UNRECOGNIZED DRUG - OTHER] PO SCH (12:18)
[2022-04-29] MEDS: Pramipexole 0.5 MG Tab PO SCH (20:00)
[2022-04-29] MEDS: Gabapentin 100 MG Cap PO SCH (20:00)
[2022-04-29] MEDS: Latanoprost 0.005% Ophth Soln 2.5 ML Bottle EYEBOTH SCH (20:01)
[2022-04-30] MEDS: Pantoprazole 40 MG Tab.CR PO SCH ×2 (06:06→17:14)
[2022-04-30 07:08] LABS: ANION GAP 12.4 mmol/L (5-15)
[2022-04-30] MEDS: RHOPRESSA 0.02% EYEBOTH SCH (08:37)
[2022-04-30] MEDS: EYE EYEBOTH SCH (08:37)
[2022-04-30] MEDS: Dorzolamide 2% Ophth Soln 10 ML Bottle EYEBOTH SCH ×2 (08:37→20:12)
[2022-04-30] MEDS: Enoxaparin 40 MG/0.4 ML Syringe SUBCUT SCH (08:38)
[2022-04-30] MEDS: Timolol Maleate 0.5% Ophth Soln 5 ML Bottle EYEBOTH SCH ×2 (08:38→20:12)
[2022-04-30] MEDS: Acetaminophen/HYDROcodone 325-5 MG Tab PO PRN (08:38)
[2022-04-30] MEDS: Donepezil 10 MG Tab PO SCH (08:39)
[2022-04-30] MEDS: Potassium Chloride 10 MEQ Tab.ER PO SCH ×2 (08:39→17:15)
[2022-04-30] MEDS: Trospium 20 MG Tab PO SCH ×2 (08:39→20:13)
[2022-04-30] MEDS: buPROPion 150 MG Tab.ER PO SCH (08:40)
[2022-04-30] MEDS: Sodium Chloride 1 GM Tab PO SCH ×3 (08:40→20:13)
[2022-04-30] MEDS: [UNRECOGNIZED DRUG - OTHER] PO SCH (08:48)
[2022-04-30] MEDS: Diclofenac Sodium 1% Gel 100 GM Tube TOP SCH ×4 (08:49→20:13)
[2022-04-30] MEDS ORDERED: Acetaminophen/HYDROcodone 325-5 MG Tab PO PRN (13:59)
[2022-04-30] MEDS: Latanoprost 0.005% Ophth Soln 2.5 ML Bottle EYEBOTH SCH (20:12)
[2022-04-30] MEDS: Pramipexole 0.5 MG Tab PO SCH (20:13)
[2022-04-30] MEDS: Gabapentin 100 MG Cap PO SCH (20:13)
[2022-05-01] MEDS: Pantoprazole 40 MG Tab.CR PO SCH (06:00)
[2022-05-01 06:06] VITALS: BP 121/74; PULSE 72
[2022-05-01] MEDS: Enoxaparin 40 MG/0.4 ML Syringe SUBCUT SCH (08:03)
[2022-05-01] MEDS: Trospium 20 MG Tab PO SCH (08:03)
[2022-05-01] MEDS: Donepezil 10 MG Tab PO SCH (08:03)
[2022-05-01] MEDS: Sodium Chloride 1 GM Tab PO SCH ×2 (08:03→12:58)
[2022-05-01] MEDS: buPROPion 150 MG Tab.ER PO SCH (08:03)
[2022-05-01] MEDS: Potassium Chloride 10 MEQ Tab.ER PO SCH (08:04)
[2022-05-01] MEDS: Diclofenac Sodium 1% Gel 100 GM Tube TOP SCH ×2 (08:04→12:58)
[2022-05-01] MEDS: Dorzolamide 2% Ophth Soln 10 ML Bottle EYEBOTH SCH (08:05)
[2022-05-01] MEDS: Timolol Maleate 0.5% Ophth Soln 5 ML Bottle EYEBOTH SCH (08:06)
[2022-05-01] MEDS: EYE EYEBOTH SCH (08:06)
[2022-05-01] MEDS: RHOPRESSA 0.02% EYEBOTH SCH (08:06)
[2022-05-01] MEDS ORDERED: Ondansetron 4 MG Tab.DIS PO PRN (08:33)
[2022-05-01] MEDS: [UNRECOGNIZED DRUG - OTHER] PO SCH (09:19)
[2022-05-01] MEDS: Metoclopramide 5 MG Tab PO PRN (09:20)
[2022-05-01 10:44] LABS: ANION GAP 14.6 mmol/L (5-15)
== END 2022-05-01 13:58 | disposition critical access hospital (66) | DRG 947 ==
LOC: VM.MS 14:00
PROVIDERS: ADMIT Family Medicine; ATTEND Family Medicine
DX: R53.1 Weakness (principal); J96.01 Acute respiratory failure with hypoxia; E87.1 Hypo-osmolality and hyponatremia; I50.9 Heart failure, unspecified; F03.90 Unspecified dementia, unspecified severity, without behavioral disturbance, psychotic disturbance, mood disturbance, and anxiety; Z85.46 Personal history of malignant neoplasm of prostate; G62.9 Polyneuropathy, unspecified; G25.81 Restless legs syndrome; G47.33 Obstructive sleep apnea (adult) (pediatric); F32.A Depression, unspecified; N32.81 Overactive bladder; F41.1 Generalized anxiety disorder; H91.90 Unspecified hearing loss, unspecified ear; G89.29 Other chronic pain; M54.9 Dorsalgia, unspecified; M19.90 Unspecified osteoarthritis, unspecified site; F02.80 Dementia in other diseases classified elsewhere, unspecified severity, without behavioral disturbance, psychotic disturbance, mood disturbance, and anxiety; Z96.649 Presence of unspecified artificial hip joint; Z96.659 Presence of unspecified artificial knee joint; Z96.0 Presence of urogenital implants; G30.1 Alzheimer's disease with late onset; K59.00 Constipation, unspecified; Z88.1 Allergy status to other antibiotic agents; Z88.8 Allergy status to other drugs, medicaments and biological substances; Z88.5 Allergy status to narcotic agent; Z91.010 Allergy to peanuts; Z91.011 Allergy to milk products; Z79.899 Other long term (current) drug therapy; Z86.010 Personal history of colon polyps; Z87.440 Personal history of urinary (tract) infections; Z98.49 Cataract extraction status, unspecified eye; Z87.891 Personal history of nicotine dependence
CPT/HCPCS: 36415; 71046; 80048; 80053; 80076; 81001; 82533; 83880; 83930; 83935; 84295; 84300; 84443; 85025; 85027; 86140; 87086; 90662; 92610-GN; 94760; 95851-GO; 97110-GP; 97116-GP; 97129-GO; 97161-GP; 97164-GP; 97165-GO; 97530-GP; 97535-GO; 99366-GO; 99366-GP; A9270-GY; J1650

== ENCOUNTER 2022-05-01 13:56 | Inpatient (IN) | payer MEDICARE, BC ==
[2022-05-01] MEDS ORDERED: Hydrocortisone 2.5% Crm 30 GM Tube TOP PRN (14:36)
[2022-05-01] MEDS ORDERED: Menthol 10%/Methyl Salicylate 15% 85 GM Tube TOP PRN (14:44)
[2022-05-01] MEDS: Diclofenac Sodium 1% Gel 100 GM Tube TOP SCH ×2 (17:16→20:45)
[2022-05-01] MEDS: Furosemide 20 MG/2 ML VIAL IV SCH (17:16)
[2022-05-01] MEDS: Latanoprost 0.005% Ophth Soln 2.5 ML Bottle EYEBOTH SCH (20:03)
[2022-05-01] MEDS: Trospium 20 MG Tab PO SCH (20:03)
[2022-05-01] MEDS: Gabapentin 100 MG Cap PO SCH (20:03)
[2022-05-01] MEDS: Pramipexole 0.5 MG Tab PO SCH (20:03)
[2022-05-01] MEDS: Timolol Maleate 0.5% Ophth Soln 5 ML Bottle EYEBOTH SCH (20:04)
[2022-05-01] MEDS: Dorzolamide 2% Ophth Soln 10 ML Bottle EYEBOTH SCH (20:04)
[2022-05-01] MEDS: Betamethasone Dipropionate/Clotrimazole 0.05-1% Crm 15 GM Tube TOP SCH (20:08)
[2022-05-01] MEDS: Acetaminophen/HYDROcodone 325-5 MG Tab PO PRN (20:41)
[2022-05-02 07:15] LABS: ANION GAP 10.2 mmol/L (5-15)
[2022-05-02] MEDS: Enoxaparin 40 MG/0.4 ML Syringe SUBCUT SCH (08:07)
[2022-05-02] MEDS: Trospium 20 MG Tab PO SCH ×2 (08:07→20:05)
[2022-05-02] MEDS: buPROPion 150 MG Tab.ER PO SCH (08:07)
[2022-05-02] MEDS: Furosemide 20 MG/2 ML VIAL IV SCH (08:07)
[2022-05-02] MEDS: Donepezil 10 MG Tab PO SCH (08:07)
[2022-05-02] MEDS: Betamethasone Dipropionate/Clotrimazole 0.05-1% Crm 15 GM Tube TOP SCH ×2 (08:08→20:09)
[2022-05-02] MEDS: Diclofenac Sodium 1% Gel 100 GM Tube TOP SCH ×4 (08:09→20:09)
[2022-05-02] MEDS: NETARSUDIL MESYLATE EYE EYEBOTH SCH (08:10)
[2022-05-02] MEDS: Timolol Maleate 0.5% Ophth Soln 5 ML Bottle EYEBOTH SCH ×2 (08:12→20:08)
[2022-05-02] MEDS: Dorzolamide 2% Ophth Soln 10 ML Bottle EYEBOTH SCH ×2 (08:13→20:08)
[2022-05-02] MEDS ORDERED: Bisacodyl 10 MG Supp RECTAL ONE (08:30)
[2022-05-02] MEDS: Polyethylene Glycol 3350 Powder 17 GM Packet PO SCH ×2 (08:45→09:19)
[2022-05-02] MEDS: Levofloxacin 500 MG Tab PO SCH (09:17)
[2022-05-02] MEDS: Metoclopramide 10 MG/2 ML SDV IVPUSH PRN (09:18)
[2022-05-02] MEDS ORDERED: Iopamidol 612 MG/ML 100 ML Bottle IVPUSH ONE (09:22)
[2022-05-02] MEDS: DULoxetine 20 MG Cap PO SCH (09:28)
[2022-05-02] MEDS: UREA PO SCH (09:41)
[2022-05-02] MEDS: AZO D MANNOSE PO SCH (12:09)
[2022-05-02] MEDS: Acetaminophen/HYDROcodone 325-5 MG Tab PO PRN (15:59)
[2022-05-02] MEDS: Gabapentin 100 MG Cap PO SCH (20:05)
[2022-05-02] MEDS: Pramipexole 0.5 MG Tab PO SCH (20:06)
[2022-05-02] MEDS: Latanoprost 0.005% Ophth Soln 2.5 ML Bottle EYEBOTH SCH (20:07)
[2022-05-03] MEDS: Enoxaparin 40 MG/0.4 ML Syringe SUBCUT SCH (08:30)
[2022-05-03] MEDS: Diclofenac Sodium 1% Gel 100 GM Tube TOP SCH ×4 (08:31→20:22)
[2022-05-03] MEDS: Donepezil 10 MG Tab PO SCH (08:32)
[2022-05-03] MEDS: DULoxetine 20 MG Cap PO SCH (08:32)
[2022-05-03] MEDS: Levofloxacin 500 MG Tab PO SCH (08:32)
[2022-05-03] MEDS: Trospium 20 MG Tab PO SCH ×2 (08:32→20:21)
[2022-05-03] MEDS: buPROPion 150 MG Tab.ER PO SCH ×2 (08:32→10:19)
[2022-05-03] MEDS: Acetaminophen/HYDROcodone 325-5 MG Tab PO PRN (08:35)
[2022-05-03] MEDS: Metoclopramide 10 MG/2 ML SDV IVPUSH PRN (08:35)
[2022-05-03] MEDS: AZO D MANNOSE PO SCH (08:40)
[2022-05-03] MEDS: NETARSUDIL MESYLATE EYE EYEBOTH SCH (08:40)
[2022-05-03] MEDS: Timolol Maleate 0.5% Ophth Soln 5 ML Bottle EYEBOTH SCH ×2 (08:40→20:20)
[2022-05-03] MEDS: Polyethylene Glycol 3350 Powder 17 GM Packet PO SCH (08:41)
[2022-05-03] MEDS: UREA PO SCH (08:41)
[2022-05-03] MEDS: Betamethasone Dipropionate/Clotrimazole 0.05-1% Crm 15 GM Tube TOP SCH ×2 (08:41→20:21)
[2022-05-03] MEDS: Dorzolamide 2% Ophth Soln 10 ML Bottle EYEBOTH SCH ×2 (08:42→20:00)
[2022-05-03] MEDS ORDERED: Furosemide 20 MG/2 ML VIAL IV SCH (09:00)
[2022-05-03] MEDS ORDERED: LORazepam 2 MG/ML SDV IVPUSH PRN (09:49)
[2022-05-03] MEDS ORDERED: Flumazenil 0.1 MG/ML 5 ML MDV IVPUSH PRN (09:49)
[2022-05-03] MEDS ORDERED: Pantoprazole 40 MG Vial IVPUSH ONE (09:56)
[2022-05-03] MEDS: Lidocaine 4% 1 each Patch TOP SCH (10:12)
[2022-05-03] MEDS: HYDROmorphone 0.5 MG/0.5 ML Syringe IVPUSH PRN ×3 (10:12→22:05)
[2022-05-03] MEDS: Latanoprost 0.005% Ophth Soln 2.5 ML Bottle EYEBOTH SCH (20:19)
[2022-05-03] MEDS: Pramipexole 0.5 MG Tab PO SCH (20:20)
[2022-05-03] MEDS: Gabapentin 100 MG Cap PO SCH (20:20)
[2022-05-04] MEDS: buPROPion 150 MG Tab.ER PO SCH (08:25)
[2022-05-04] MEDS: Donepezil 10 MG Tab PO SCH (08:26)
[2022-05-04] MEDS: Gabapentin 100 MG Cap PO SCH ×2 (08:26→20:32)
[2022-05-04] MEDS: Lidocaine 4% 1 each Patch TOP SCH (08:27)
[2022-05-04] MEDS: Polyethylene Glycol 3350 Powder 17 GM Packet PO SCH (08:28)
[2022-05-04] MEDS: NETARSUDIL MESYLATE EYE EYEBOTH SCH (08:29)
[2022-05-04] MEDS: Dorzolamide 2% Ophth Soln 10 ML Bottle EYEBOTH SCH ×2 (08:30→20:26)
[2022-05-04] MEDS: Diclofenac Sodium 1% Gel 100 GM Tube TOP SCH ×4 (08:31→20:28)
[2022-05-04] MEDS: AZO D MANNOSE PO SCH (08:38)
[2022-05-04] MEDS: Trospium 20 MG Tab PO SCH ×2 (08:53→20:33)
[2022-05-04] MEDS: Timolol Maleate 0.5% Ophth Soln 5 ML Bottle EYEBOTH SCH ×2 (08:53→20:24)
[2022-05-04] MEDS: UREA PO SCH (08:57)
[2022-05-04] MEDS: Betamethasone Dipropionate/Clotrimazole 0.05-1% Crm 15 GM Tube TOP SCH ×2 (08:58→20:26)
[2022-05-04] MEDS: HYDROmorphone 0.5 MG/0.5 ML Syringe IVPUSH PRN ×2 (09:03→17:15)
[2022-05-04] MEDS: Metoclopramide 10 MG/2 ML SDV IVPUSH PRN (09:03)
[2022-05-04] MEDS: cefTRIAXone 1 GM Vial IVPUSH SCH (09:20)
[2022-05-04] MEDS: Enoxaparin 40 MG/0.4 ML Syringe SUBCUT SCH (10:07)
[2022-05-04] MEDS: Lactulose Soln 10 GM/15 ML 30 ML UD Cup PO SCH ×2 (10:08→20:33)
[2022-05-04] MEDS: Latanoprost 0.005% Ophth Soln 2.5 ML Bottle EYEBOTH SCH (20:27)
[2022-05-04] MEDS: Pramipexole 0.5 MG Tab PO SCH (20:33)
[2022-05-05] MEDS: Metoclopramide 10 MG/2 ML SDV IVPUSH PRN (06:56)
[2022-05-05 07:04] LABS: CHLORIDE,CL 96 mmol/L (98-107); SODIUM,NA 131 mmol/L (136-145)
[2022-05-05 07:05] LABS: ANION GAP 13.9 mmol/L (5-15)
[2022-05-05 07:06] LABS: ESTIMATED GFR 64 mL/min (>=60)
[2022-05-05] MEDS ORDERED: Potassium Chloride Riders 20 MEQ in Premix Bag 1 BAG IV ONE ×2 (07:07→09:45)
[2022-05-05] MEDS ORDERED: Mineral Oil 133 ML BOTTLE RECTAL ONE (08:15)
[2022-05-05] MEDS: Polyethylene Glycol 3350 Powder 17 GM Packet PO SCH (09:29)
[2022-05-05] MEDS: buPROPion 150 MG Tab.ER PO SCH (09:30)
[2022-05-05] MEDS: Donepezil 10 MG Tab PO SCH (09:30)
[2022-05-05] MEDS: Enoxaparin 40 MG/0.4 ML Syringe SUBCUT SCH (09:30)
[2022-05-05] MEDS: Trospium 20 MG Tab PO SCH ×2 (09:30→21:24)
[2022-05-05] MEDS: Gabapentin 100 MG Cap PO SCH ×2 (09:30→21:24)
[2022-05-05] MEDS: Lactulose Soln 10 GM/15 ML 30 ML UD Cup PO SCH ×2 (09:31→21:23)
[2022-05-05] MEDS: HYDROmorphone 0.5 MG/0.5 ML Syringe IVPUSH PRN ×2 (09:39→15:52)
[2022-05-05] MEDS ORDERED: Sodium Chloride 0.9% 1,000 ML IV ONE (09:45)
[2022-05-05] MEDS: AZO D MANNOSE PO SCH (10:46)
[2022-05-05] MEDS: NETARSUDIL MESYLATE EYE EYEBOTH SCH (10:47)
[2022-05-05] MEDS: Dorzolamide 2% Ophth Soln 10 ML Bottle EYEBOTH SCH ×2 (10:47→21:22)
[2022-05-05] MEDS: Timolol Maleate 0.5% Ophth Soln 5 ML Bottle EYEBOTH SCH ×2 (10:47→21:20)
[2022-05-05] MEDS: cefTRIAXone 1 GM Vial IVPUSH SCH (10:48)
[2022-05-05] MEDS: UREA PO SCH (10:56)
[2022-05-05] MEDS: Diclofenac Sodium 1% Gel 100 GM Tube TOP SCH ×4 (10:58→21:26)
[2022-05-05] MEDS: Betamethasone Dipropionate/Clotrimazole 0.05-1% Crm 15 GM Tube TOP SCH ×2 (10:58→21:26)
[2022-05-05] MEDS: Lidocaine 4% 1 each Patch TOP SCH (10:58)
[2022-05-05] MEDS: Potassium Chloride 10% 20 MEQ/15 ML Soln 15 ML UD Cup PO SCH ×3 (10:59→21:23)
[2022-05-05] MEDS: Simethicone 80 MG Tab.Chew PO SCH ×3 (14:15→21:24)
[2022-05-05] MEDS: Metoclopramide 10 MG/2 ML SDV IVPUSH SCH ×2 (14:16→23:18)
[2022-05-05] MEDS: Latanoprost 0.005% Ophth Soln 2.5 ML Bottle EYEBOTH SCH (21:22)
[2022-05-05] MEDS: Pramipexole 0.5 MG Tab PO SCH (21:24)
[2022-05-06 04:53] VITALS: PULSE 88
[2022-05-06 05:22] VITALS: BP 110/72
[2022-05-06] MEDS: Metoclopramide 10 MG/2 ML SDV IVPUSH SCH (06:24)
[2022-05-06] MEDS: Simethicone 80 MG Tab.Chew PO SCH ×2 (06:24→10:04)
[2022-05-06 07:46] LABS: ANION GAP 15.2 mmol/L (5-15)
[2022-05-06] MEDS: cefTRIAXone 1 GM Vial IVPUSH SCH (09:55)
[2022-05-06] MEDS: HYDROmorphone 0.5 MG/0.5 ML Syringe IVPUSH PRN (09:55)
[2022-05-06] MEDS: Enoxaparin 40 MG/0.4 ML Syringe SUBCUT SCH (09:56)
[2022-05-06] MEDS: Lidocaine 4% 1 each Patch TOP SCH (09:56)
[2022-05-06] MEDS: Lactulose Soln 10 GM/15 ML 30 ML UD Cup PO SCH (09:56)
[2022-05-06] MEDS: Polyethylene Glycol 3350 Powder 17 GM Packet PO SCH (09:56)
[2022-05-06] MEDS: Gabapentin 100 MG Cap PO SCH (09:57)
[2022-05-06] MEDS: buPROPion 150 MG Tab.ER PO SCH (09:57)
[2022-05-06] MEDS: Donepezil 10 MG Tab PO SCH (09:57)
[2022-05-06] MEDS: Potassium Chloride 10% 20 MEQ/15 ML Soln 15 ML UD Cup PO SCH (09:58)
[2022-05-06] MEDS: Timolol Maleate 0.5% Ophth Soln 5 ML Bottle EYEBOTH SCH (09:59)
[2022-05-06] MEDS: NETARSUDIL MESYLATE EYE EYEBOTH SCH (09:59)
[2022-05-06] MEDS: Diclofenac Sodium 1% Gel 100 GM Tube TOP SCH (10:00)
[2022-05-06] MEDS: Betamethasone Dipropionate/Clotrimazole 0.05-1% Crm 15 GM Tube TOP SCH (10:00)
[2022-05-06] MEDS: AZO D MANNOSE PO SCH (10:03)
[2022-05-06] MEDS: UREA PO SCH (10:04)
[2022-05-06] MEDS: Trospium 20 MG Tab PO SCH (10:04)
[2022-05-06] MEDS: Dorzolamide 2% Ophth Soln 10 ML Bottle EYEBOTH SCH (10:28)
== END 2022-05-06 11:05 | disposition hospice, home (50) | DRG 435 ==
LOC: VM.MS 13:57
PROVIDERS: ADMIT Family Medicine; ATTEND Family Medicine
DX: C25.9 Malignant neoplasm of pancreas, unspecified (principal); I81 Portal vein thrombosis; J18.9 Pneumonia, unspecified organism; J96.01 Acute respiratory failure with hypoxia; C78.7 Secondary malignant neoplasm of liver and intrahepatic bile duct; E46 Unspecified protein-calorie malnutrition; E87.1 Hypo-osmolality and hyponatremia; G30.9 Alzheimer's disease, unspecified; F02.80 Dementia in other diseases classified elsewhere, unspecified severity, without behavioral disturbance, psychotic disturbance, mood disturbance, and anxiety; R10.9 Unspecified abdominal pain; R14.0 Abdominal distension (gaseous); R11.0 Nausea; Z66 Do not resuscitate; M54.9 Dorsalgia, unspecified; G89.29 Other chronic pain; Z85.46 Personal history of malignant neoplasm of prostate; G62.9 Polyneuropathy, unspecified; G47.33 Obstructive sleep apnea (adult) (pediatric); F32.A Depression, unspecified; F41.9 Anxiety disorder, unspecified; N32.81 Overactive bladder; R53.1 Weakness; H91.90 Unspecified hearing loss, unspecified ear; Z86.010 Personal history of colon polyps; M19.90 Unspecified osteoarthritis, unspecified site; G25.81 Restless legs syndrome; Z87.891 Personal history of nicotine dependence; Z96.649 Presence of unspecified artificial hip joint; Z96.659 Presence of unspecified artificial knee joint; R33.9 Retention of urine, unspecified; E87.6 Hypokalemia; B95.8 Unspecified staphylococcus as the cause of diseases classified elsewhere; Z68.32 Body mass index [BMI] 32.0-32.9, adult; K59.00 Constipation, unspecified; Z88.8 Allergy status to other drugs, medicaments and biological substances; Z88.1 Allergy status to other antibiotic agents; Z91.011 Allergy to milk products; Z91.010 Allergy to peanuts; Z79.899 Other long term (current) drug therapy; Z79.01 Long term (current) use of anticoagulants
CPT/HCPCS: 36415; 70450; 71260; 74177; 80048; 80053; 81001; 82140; 82607; 82977; 83735; 84153; 85025; 86140; 87086; 87088; 87186; 93005; 94760; 97162-GP; 97165-GO; 97535-GO; A9270-GY; C9113; J0696; J1170; J1650; J1940; J2060; J2765; J3480; J7030; Q9967